=== PATIENT | female | born 1970 | race Caucasian/White ===

== ENCOUNTER → 2018-09-18 09:32 | Outpatient (CLI) | payer MEDICAID, SELFPAY ==
[2017-01-04 01:48] VITALS: BMI 37.0
[2018-09-18 10:52] LABS: Anion Gap 2 (5-15); BUN 11 mg/dL (7-18); BUN/Creat Ratio 10.7 RATIO (10-20); Calcium,Total 8.7 mg/dL (8.5-10.1); Chloride 108 mmol/L (98-107); Cholesterol 246 mg/dL (200); Creatinine, Serum 1.03 mg/dL (0.55-1.02); EST Glomerular Filtration Rate 61 mL/min (>60); Est Glom Filt Rate - Afr Amer 74 mL/min (>60); Glucose 96 mg/dL (74-106); High Density Lipoprotein 61 mg/dL; Potassium 4.2 mmol/L (3.5-5.1); Sodium Level 135 mmol/L (136-145); T4 Free Direct 0.98 ng/dL (0.76-1.46); Thyroid Stim Hormone (TSH) 1.16 uIU/mL (0.358-3.74); Triglycerides 105 mg/dL; Very Low Density Lipoprotein 21 mg/dL (5-40)
== END ==
PROVIDERS: Family Provider Family Medicine; PCP Family Medicine; Referring Provider Family Medicine; Visit Provider Family Medicine
DX: E78.5 Hyperlipidemia, unspecified (principal)
CPT/HCPCS: 36415; 80048; 80061; 84439; 84443

== ENCOUNTER 2020-01-16 08:54 | Emergency (ER) | payer MEDICAID, SELFPAY ==
[2020-01-16 08:55] VITALS: BP 136/78; PULSE 81; RESP 19; TEMP 36.6; O2SAT 96; BMI 38.4
--- NOTE | 2020-01-16 09:25 | ED.DCSUM_ITS ---
History of Present Illness Chief Complaint: Shortness of Breath Informant: Patient Onset: Yesterday Timing: Intermittent Quality: Wheezing Narrative: Patient is a 49-year-old female with history of multiple sclerosis and allergies presenting with wheezing. Patient states around 11 PM last night she started wheezing and feeling short of breath. She was able to go to bed around 2 AM but woke up and still was feeling short of breath. She said to come to the ER for further evaluation and treatment. She denies any associated symptoms such as chest pain, cough, fever, chills, nausea, vomiting or any symptoms. She has any upper respiratory symptoms. She notes that she was around her cats last night and was cleaning and sometimes that causes this to happen. She states she never been hospitalized for her breathing. She is not have any breathing treatments or anything at home. No other complaints at this time. She also notes that she has a mild headache. She states in the back of her neck rating up to her head. She not take anything for this prior to arrival. She denies associated vision changes. She denies any weakness or new paresthesias. She knows she is chronic paresthesias in her left hand secondary to her MS. She does not feel like this is a flare of her MS. Past Medical History - Allergies and Home Meds Allergies/Adverse Reactions: Allergies cat dander Allergy (Verified 01/16/20 08:57) Shortness of breath pollen extracts Allergy (Verified 01/16/20 08:57) Shortness of breath morphine Adverse Reaction (Verified 01/16/20 08:57) Nausea/Vom/Diarrhea Primary Care Physician: Cedric Lerma MD [Primary Care Provider] - Past Medical History: - - MS Surgical History: no surgical history Smoking Status: Never smoker Review of Systems General: Denies: Chills, Fever, Malaise, Sweats Eyes: Denies: Visual changes - bilaterally, Diplopia ENT: Denies: Rhinorrhea, Sore throat Cardiovascular: Denies: Chest pain, Palpitations Respiratory: Reports: Dyspnea, - - Wheezing. Denies: Cough, Dyspnea on exertion Gastrointestinal: Denies: Abdominal pain, Nausea, Vomiting, Diarrhea, Melena, Hematochezia Genitourinary: Denies: Dysuria, Hematuria Musculoskeletal: Denies: Back pain, Extremity Pain Skin: Denies: Rash, Wounds Neurological: Reports: Headache. Denies: Weakness, Numbness Physical Exam Vital Signs/Narrative: Vital Signs Temp Pulse Resp BP Pulse Ox 01/16/20 08:55 98 F 81 19 H 136/78 H 96 Inital Vital Signs reviewed: Yes General: Well nourished, Well developed, No Acute Distress Head: Normocephalic, Atraumatic Eyes: Perrl, EOMI ENT: Moist mucous membranes, No rhinorrhea, - - Minor erythema of the pharynx present Neck: Supple, Nontender, No JVD Cardiovascular: Regular rate, Regular rhythm, No murmurs Respiratory: No distress, Chest nontender, Wheezing - Wheezing in upper lung guerrero more pronounced than the lower. Negative for: Diminished, Decreased Air Movement, Retractions Abdomen: Soft, Nontender, Nondistended, Normal bowel sounds Back: Nontender, Normal Inspection Extremities: Nontender, No edema Skin: Normal color, No rash Neurological: Alert, Oriented x3, Cranial nerves II-XII grossly intact, Normal Strength Psychological: Normal affect, Normal Mood Diagnostic/Tx/Re-eval Chest X-Ray - ED: 2 View, Read by ED Physician, Read by Radiologist, No Acute Disease Clinical Impression(s) from Imaging Studies Chest X-Ray 01/16/20 09:30 IMPRESSION: Normal x-ray examination of the chest. Electronically Signed: Albert Bowles, at 9:50 EDT , Service support , Treatment - Dyspnea: Albuterol Repeat Evaluation: Resolved - Medical Decision Making Is evaluated for less than 24 hours of wheezing. The sudden onset. It seems to be asthma versus reactive airway. She does not appear infectious. Chest x-ray is obtained which does not show any acute process. Patient is given HFA inhaler in the ER with resolution of her symptoms. She is also given Motrin for her headache and prednisone. Patient will be discharged home on a course of prednisone and with albuterol inhaler. She is instructed to alternate Tylenol and ibuprofen as needed for headaches. She is agreeable with this plan. She has normal vital signs I do not think she requires further emergent evaluation at this time. She is given return precautions. ED Disposition - Plan for ED Patient: Disposition: Home or Assisted Living Diagnosis: Reactive airway disease with acute exacerbation Instructions: ED REACTIVE AIRWAY DISEASE Adult Prescriptions: Prednisone [Deltasone] 40 mg PO DAILY #8 tab Transmission Status: Pending to [facility] Referrals: Cedric Lerma MD [Primary Care Provider] - Additional Instructions: Use the inhaler with spacer every 4-6 hours (1 to 2 puffs) as needed for shortness of breath or wheezing. Follow-up with your primary care doctor. Might be beneficial to start taking daily allergy medicine such as Zyrtec until you are feeling better. At this time you do not appear to have any infectious cause such as pneumonia or COVID-19
--- NOTE | 2020-01-16 09:30 | RAD_ITS ---
STUDY: X-RAY CHEST REASON FOR EXAM: Female, 49 years old. Sob, wheezing TECHNIQUE: PA and lateral views of the chest. COMPARISON: Comparison is made with prior study dated 03/10/2012. FINDINGS: The lungs are clear and expanded. There is no demonstrated pleural abnormality. Normal size heart. Normal mediastinum and radhika. Normal visualized pulmonary arteries. Normal visualized aortic arch and descending thoracic aorta. Normal visualized thoracic spine. Normal visualized ribs, clavicles, and shoulders. There is no demonstrated abnormality of the visualized soft tissue structures of the upper abdomen. RAD/Chest PA and Lateral IMPRESSION: Normal x-ray examination of the chest. Electronically Signed: Albert Bowles, at 9:50 EDT , Service support ,
[2020-01-16] MEDS: predniSONE 20 MG Tablet 60 MG PO (10:02)
[2020-01-16] MEDS: Ibuprofen 600 MG Tablet PO (10:03)
[2020-01-16 10:15] VITALS: BP 132/97; PULSE 82; RESP 20; TEMP 36.6; O2SAT 97
[2020-01-16] MEDS: INHALER, ASSIST DEVICES 1 EACH SPACER INHALATION (11:16)
== END 2020-01-16 11:17 | disposition home or self-care (01) ==
PROVIDERS: Emergency Provider Emergency Medicine; PCP Family Medicine
DX: J45.901 Unspecified asthma with (acute) exacerbation (principal); G35 Multiple sclerosis
CPT/HCPCS: 71046; 99281

== ENCOUNTER → 2020-03-30 14:26 | Outpatient (CLI) | payer MEDICAID, SELFPAY ==
[2020-03-29 11:33] VITALS: BMI 37.8
--- NOTE | 2020-03-30 14:29 | US_ITS ---
STUDY: ULTRASOUND BREAST - LEFT REASON FOR EXAM: Female, 49 years old. Abnormal screening mammogram. TECHNIQUE: Axial and longitudinal images of the LEFT breast were performed with a high resolution ultrasound transducer. # OF IMAGES: 177 COMPARISON: Comparison is made with prior mammogram dated 03/30/2020. FINDINGS: LEFT Breast: Multiple cysts are seen throughout the right breast. This corresponds to the mammographic findings. The largest cyst measures 2.3 cm x 2.2 cm x 1.1 cm. IMPRESSION: Multiple cysts. ASSESSMENT CATEGORY: BIRADS Category 2: Benign. A letter regarding these results will be sent to the patient by the facility within 30 days. Electronically Signed: Albert Jelena, at 8:29 EST , Service support , STUDY: ULTRASOUND BREAST - RIGHT REASON FOR EXAM: Female, 49 years old. Abnormal screening mammogram. TECHNIQUE: Axial and longitudinal images of the RIGHT breast were performed with a high resolution ultrasound transducer. # OF IMAGES: 177 COMPARISON: Comparison is made with prior mammogram done earlier today. FINDINGS: RIGHT Breast: Multiple cysts are seen. The largest measures 2.2 cm x 1.7 cm x 1.4 cm. This corresponds to the mammographic findings. US/Breast Limited Unilateral IMPRESSION: Multiple cysts. ASSESSMENT CATEGORY: BIRADS Category 2: Benign. A letter regarding these results will be sent to the patient by the facility within 30 days. Electronically Signed: Albert Bowles, at 8:31 EST , Service support ,
--- NOTE | 2020-03-30 14:29 | BI_ITS ---
MAMMOGRAPHY - BILATERAL DIAGNOSTIC REASON FOR EXAM: Female, 49 years old. Bilateral breast lumps. PERTINENT HISTORY: Aunt with breast cancer. TECHNIQUE: Digital bilateral breast irena (3D mammographic acquisition) in the CC and MLO projections. 2-D mediolateral oblique (MLO) and craniocaudad (CC) views of both breasts were obtained. CAD: Full Field Digital Mammography with Computer Added Detection was performed. COMPARISON: Comparison is made with prior examination of 11/27/2010. FINDINGS: Breast Composition: The breasts are heterogeneously dense, which may obscure small masses. Several bilateral well-defined nodular densities in the upper central portion of both breasts. These most likely represent cysts. These have progressed in size and number as compared to prior study. Correlation with ultrasound is recommended. No other significant abnormalities are identified. BI/DIAG MAMM W/CAD, BILAT IMPRESSION: Bilateral breast nodules as described. Correlation with ultrasound is recommended. ASSESSMENT CATEGORY: BIRADS Category 0: Incomplete. Need additional imaging evaluation. A letter regarding these results will be sent to the patient by the facility within 30 days. Approximately 10% of breast cancers are not detected by mammography. A normal mammogram should not delay biopsy of a clinically suspicious abnormality. Electronically Signed: Albert Bowles, at 15:29 EST , Service support ,
== END ==
PROVIDERS: PCP Family Medicine; Visit Provider Nurse Practitioner Women's Health
DX: N63.20 Unspecified lump in the left breast, unspecified quadrant (principal); Z80.3 Family history of malignant neoplasm of breast
CPT/HCPCS: 76642; 77062; 77066; G0279

== ENCOUNTER → 2020-06-25 15:12 | Outpatient (CLI) | payer MEDICAID, SELFPAY ==
[2020-04-05 13:58] VITALS: BMI 35.5
== END ==
PROVIDERS: PCP Family Medicine; Referring Provider Family Medicine; Visit Provider Family Medicine
DX: Z20.828 Contact with and (suspected) exposure to other viral communicable diseases (principal)
CPT/HCPCS: 87635; U0002

== ENCOUNTER → 2020-10-13 11:41 | Outpatient (CLI) | payer MEDICAID, SELFPAY ==
[2020-10-02 15:15] VITALS: BMI 38.4
[2020-10-13 12:48] LABS: Absolute Neutrophil Count 4.5 X10^3/uL (2.0-7.7); Basophil# 0.07 X10^3/uL; Basophil% 0.8 % (0-1); Eosinophil# 0.73 X10^3/uL; Eosinophils% 8.8 % (0-5); Hemoglobin 14.3 g/dL (12.0-15.0); Lymphocyte % 27.6 % (19-41); Mean Corp Hgb Conc 31.1 g/dL (32-36); Mean Platelet Vol. 11.4 fl (6.2-12.0); Monocyte# 0.64 X10^3/uL; Monocyte% 7.7 % (0-10); NRBC Flagged by Analyzer 0 % (0-5); Neutrophil # 4.53 X10^3/uL (2.7-7.7); Neutrophil % 54.4 % (47-70); Platelet Count 286 K/mm3 (150-450); RBC Distribution Width CV 13.6 % (11.6-14.6); Red Blood Count 5.29 M/mm3 (4.2-5.4); White Blood Count 8.3 K/mm3 (4.4-11.0)
[2020-10-13 13:10] LABS: ALB/GLOB Ratio 0.9 RATIO (0.9-2.4); AST(SGOT) 17 U/L (15-37); Alanine Aminotransfer ALT/SGPT 32 U/L (13-56); Albumin, Serum 3.5 g/dL (3.2-5.0); Alkaline Phosphatase 69 U/L (45-117); Anion Gap 3 (5-15); BUN 16 mg/dL (7-18); BUN/Creat Ratio 15.1 RATIO (10-20); Chloride 106 mmol/L (98-107); Cholesterol 231 mg/dL (200); Creatinine, Serum 1.06 mg/dL (0.55-1.02); EST Glomerular Filtration Rate 58 mL/min (>60); Est Glom Filt Rate - Afr Amer 71 mL/min (>60); Globulin 4.1 g/dL (2.2-4.2); Glucose 98 mg/dL (74-106); High Density Lipoprotein 71 mg/dL; Potassium 4.7 mmol/L (3.5-5.1); Protein, Total 7.6 g/dL (6.4-8.2); Sodium Level 140 mmol/L (136-145); T4 Free Direct 0.88 ng/dL (0.76-1.46); Triglycerides 111 mg/dL; Very Low Density Lipoprotein 22 mg/dL (5-40)
== END ==
PROVIDERS: PCP Family Medicine; Referring Provider Family Medicine; Visit Provider Family Medicine
DX: G35 Multiple sclerosis (principal); E78.5 Hyperlipidemia, unspecified; F32.9 Major depressive disorder, single episode, unspecified
CPT/HCPCS: 36415; 80053; 80061; 82306; 84439; 84443; 85025

== ENCOUNTER → 2021-10-25 | Outpatient (CLI) | payer MEDICAID, SELFPAY ==
[2021-10-25 12:45] LABS: Absolute Lymphocyte Count 2.63 X10^3/uL (0.83-4.51); Absolute Neutrophil Count 4.4 X10^3/uL (2.0-7.7); Basophil# 0.06 X10^3/uL; Basophil% 0.7 % (0-1); Eosinophil# 0.76 X10^3/uL; Eosinophils% 8.7 % (0-5); Hematocrit 44.7 % (37-47); Hemoglobin 13.8 g/dL (12.0-15.0); Lymphocyte # 2.63 X10^3/ul (0.83-4.51); Lymphocyte % 30.2 % (19-41); Mean Corp Hgb Conc 30.9 g/dL (32-36); Mean Corpuscular Volume 87.3 fL (81-99); Mean Platelet Vol. 11.9 fl (6.2-12.0); Monocyte# 0.81 X10^3/uL; Monocyte% 9.3 % (0-10); NRBC Flagged by Analyzer 0 % (0-5); Neutrophil # 4.42 X10^3/uL (2.7-7.7); Neutrophil % 50.8 % (47-70); Platelet Count 285 K/mm3 (150-450); RBC Distribution Width SD 44.6 fl (35.1-43.9); Red Blood Count 5.12 M/mm3 (4.2-5.4); White Blood Count 8.7 K/mm3 (4.4-11.0)
[2021-10-25 12:56] LABS: ALB/GLOB Ratio 0.9 RATIO (0.9-2.4); AST(SGOT) 20 U/L (15-37); Alanine Aminotransfer ALT/SGPT 28 U/L (13-56); Albumin, Serum 3.4 g/dL (3.2-5.0); Alkaline Phosphatase 61 U/L (45-117); Anion Gap 4 (5-15); BUN 15 mg/dL (7-18); BUN/Creat Ratio 14.2 RATIO (10-20); Calcium,Total 9.1 mg/dL (8.5-10.1); Chloride 108 mmol/L (98-107); Cholesterol 201 mg/dL (200); Creatinine, Serum 1.06 mg/dL (0.55-1.02); EST Glomerular Filtration Rate 58 mL/min (>60); Est Glom Filt Rate - Afr Amer 70 mL/min (>60); Globulin 3.6 g/dL (2.2-4.2); Glucose 108 mg/dL (74-106); High Density Lipoprotein 60 mg/dL; Potassium 4.5 mmol/L (3.5-5.1); Sodium Level 141 mmol/L (136-145); Triglycerides 164 mg/dL
[2021-10-25 12:57] LABS: Very Low Density Lipoprotein 33 mg/dL (5-40)
== END | disposition home or self-care (01) ==
LOC: BIMLAB 08:31
PROVIDERS: PCP Internal Medicine; Referring Provider Internal Medicine; Visit Provider Internal Medicine
DX: E78.5 Hyperlipidemia, unspecified (principal); I10 Essential (primary) hypertension
CPT/HCPCS: 36415; 80053; 80061; 85025

== ENCOUNTER → 2021-11-20 | Outpatient (CLI) | payer MEDICAID, SELFPAY ==
--- NOTE | 2021-11-20 12:30 | EKG12_ITS ---
Test Reason : HYPERTENSION Blood Pressure : / mmHG Vent. Rate : 072 BPM Atrial Rate : 072 BPM P-R Int : 162 ms QRS Dur : 076 ms QT Int : 396 ms P-R-T Axes : 084 081 070 degrees QTc Int : 433 ms Normal sinus rhythm with sinus arrhythmia Normal ECG Confirmed by JOSE JORDAN, RUSS ([id number]), news editor EMILY GALAVIZ ([id number]) on 11/21/2021 8:14:46 AM Referred By: Paulino Peters Confirmed By:RUSS GARCIA MD
== END | disposition home or self-care (01) ==
LOC: PSN 12:24
PROVIDERS: PCP Internal Medicine; Referring Provider Internal Medicine; Visit Provider Internal Medicine
DX: I49.8 Other specified cardiac arrhythmias (principal); I10 Essential (primary) hypertension; E78.5 Hyperlipidemia, unspecified
CPT/HCPCS: 93005

== ENCOUNTER → 2021-12-02 | Outpatient (CLI) | payer MEDICAID, SELFPAY ==
[2021-12-02 15:39] LABS: Anion Gap 6 (5-15); BUN 12 mg/dL (7-18); Calcium,Total 9.7 mg/dL (8.5-10.1); Chloride 105 mmol/L (98-107); Creatinine, Serum 0.92 mg/dL (0.55-1.02); EST Glomerular Filtration Rate 68 mL/min (>60); Est Glom Filt Rate - Afr Amer 82 mL/min (>60); Glucose 94 mg/dL (74-106); Potassium 4.1 mmol/L (3.5-5.1); Sodium Level 140 mmol/L (136-145)
== END | disposition home or self-care (01) ==
LOC: BIMLAB 14:11
PROVIDERS: PCP Internal Medicine; Visit Provider Internal Medicine
DX: I10 Essential (primary) hypertension (principal)
CPT/HCPCS: 36415; 80048

== ENCOUNTER → 2021-12-04 | Outpatient (CLI) | payer MEDICAID, SELFPAY ==
--- NOTE | 2021-12-04 14:03 | BI_ITS ---
MAMMOGRAPHY - BILATERAL SCREENING REASON FOR EXAM: Female, 51 years old. Routine annual screening examination. PERTINENT HISTORY: Aunt with breast cancer. TECHNIQUE: Digital bilateral breast neetu (3D mammographic acquisition) in the CC and MLO projections. 2-D mediolateral oblique (MLO) and craniocaudad (CC) views of both breasts were obtained. CAD: Full Field Digital Mammography with Computer Added Detection was performed. COMPARISON: Comparison is made with prior study dated 03/30/2020. FINDINGS: Breast Composition: The breasts are heterogeneously dense, which may obscure small masses. 1 segment, several bilateral well-defined nodular densities are seen in the upper outer quadrant of both breasts more prominent on the left side. The previously seen nodules in the upper-outer quadrant of the left breast have decreased in size. There is also been mild decrease in size of the previously seen right breast nodules. These were demonstrated to be multiple cysts on prior ultrasound. No other significant abnormalities are identified. BI/SCRN MAMM (CAD)W/NEETU BILAT IMPRESSION: Interval decrease in size of the bilateral breast nodules as described in keeping with the decrease in size of breast cysts. Yearly follow-up mammogram recommended. (A) . ASSESSMENT CATEGORY: BIRADS Category 2: Benign. A letter regarding these results will be sent to the patient by the facility within 30 days. Approximately 10% of breast cancers are not detected by mammography. A normal mammogram should not delay biopsy of a clinically suspicious abnormality. [id number] Electronically Signed: Albert Bowles MD at 15:10 EDT ,
== END | disposition home or self-care (01) ==
LOC: OPBI 14:02
PROVIDERS: PCP Internal Medicine; Referring Provider Nurse Practitioner Women's Health; Visit Provider Nurse Practitioner Women's Health
DX: Z12.31 Encounter for screening mammogram for malignant neoplasm of breast (principal); Z80.3 Family history of malignant neoplasm of breast
CPT/HCPCS: 77063; 77067

== ENCOUNTER → 2021-12-18 | Outpatient (CLI) | payer MEDICAID, SELFPAY ==
--- NOTE | 2021-12-18 15:48 | MRI_ITS ---
INDICATION: MS EXAMINATION: MRI - MR Brain WO/W Contrast TECHNIQUE: MRI examination of the brain obtained with standard protocol including multiplanar multiecho pre and postcontrast imaging. IV Contrast Dosage and Agent: 20 mL Clariscan IV COMPARISON: 02/01/2016 FINDINGS: HEMISPHERES, CEREBELLUM AND BRAINSTEM: 1. The cerebral parenchyma, ventricular system, subarachnoid spaces have normal configuration and density. There is a normal gyral pattern. There is normal perez/white differentiation. No midline shift.. 2. Again noted is a subtle area of signal hyperintensity on FLAIR imaging within the dorsal cervical cord and cervical medullary junction, and extending into the dorsal lateral aspect of the medulla, particularly at the level of the restiform body. 3. Similar area of subtle signal hyperintensity along the lateral aspect of the rostral madonna at the level of the LEFT lateral lemniscus, however this is unchanged. 4. Remaining hemispheric white matter has normal appearance. 5. No intraparenchymal mass, hemorrhage, or acute territorial infarct. No areas of abnormal fluid restriction or contrast enhancement 6. The cerebellum, brainstem, basilar and suprasellar cisterns have unchanged configuration. No Chiari malformation. PITUITARY: Infundibulum and pituitary have normal configuration. Midline structures appear normal. CSF SPACES: Appropriate for age. No hydrocephalus. Basal cisterns are patent. VESSELS: 1. There are normal flow voids noted in the great vessels at the skull base ORBITS AND PARANASAL SINUSES: 1. Both globes, extraocular muscles, optic nerves and retrobulbar fat appear unremarkable. 2. Paranasal sinuses are clear. BONY ELEMENTS: Bony elements of the cranial vault, facial skeleton and skull base have normal appearance. SCALP AND SOFT TISSUES: Normal appearance of the soft tissues of the scalp and the visualized face OTHER: None MRI/Brain W/WO Contrast IMPRESSION: 1. Stable exam. 2. Subtle areas of white matter signal hyperintensity particularly at the cervical medullary junction, as well as along the LEFT lateral aspect of the rostral madonna. No detrimental interval change. 3. Remaining hemispheric white matter and deep nuclear white matter has normal appearance. 4. No evidence of active or acute demyelination. 5. No mass, hemorrhage, or acute territorial infarct. No areas of abnormal contrast-enhancement. Electronically Signed: Leonel Murry MD at 18:19 EDT ,
--- NOTE | 2021-12-18 15:48 | MRI_ITS ---
STUDY: MRI CERVICAL SPINE REASON FOR EXAM: Female, 51 years old. MS TECHNIQUE: Standardized fat and water weighted pulse sequences were obtained in the sagittal and axial following administration of IV 20ml Clariscan. COMPARISON: None FINDINGS: Vertebral bodies and alignment: 1. Vertebral body height and alignment are maintained. No evidence of marrow edema, fracture or subluxation. 2. Prevertebral soft tissue planes have normal appearance. 3. Normal appearance the odontoid process and alignment of the craniocervical junction. 4. Normal appearance the posterior muscular fascial planes of the cervical spine, and the posterior ligamentous support structure the cervical spine is intact. Intervertebral disc levels: C2-3: Normal endplates. Normal disc height, signal and morphology. Normal central canal and intervertebral neural foramina. C3-4: No evidence disc herniation canal stenosis however there is facet and uncovertebral joint hypertrophic change on the LEFT contributing to moderate to severe LEFT foraminal narrowing. C4-5: Mild disc desiccation without disc herniation or canal stenosis however there is a LEFT foraminal narrowing contributed about vertebral joint and facet changes with potential nerve root impingement. C5-6: Mild disc this case, mild disc protrusion with mild asymmetry greater on the LEFT than RIGHT. There is deformity of the lateral recesses. There is narrowing of the LEFT neural foramen due to uncovertebral joint and facet hypertrophic changes with early nerve root impingement. Moderate RIGHT foraminal narrowing without nerve root compromise. C6-7: Disc desiccation without evidence disc herniation canal stenosis. There is mild to moderate LEFT foraminal narrowing due to facet and uncovertebral joint hypertrophic changes. RIGHT neural foramen is widely patent. C7-T1: Normal endplates. Normal disc height, signal and morphology. Normal central canal and intervertebral neural foramina. Spinal CORD: There is normal appearance the spinal cord. There is subtle area of signal abnormality along the posterior aspect of the cervical medullary junction without change from prior MRI examination head. No other areas of abnormal signal or lesions within the spinal cord. No evidence cord compression. MRI/Spine Cervical W/WO Contrast IMPRESSION: 1. Mild cervical spondylosis. Mild chronic appearing disc bulge and osteophyte complex noted without evidence canal stenosis. 2. Multilevel foraminal narrowing greater on LEFT than RIGHT with potential nerve root impingement due to facet and uncovertebral joint hypertrophic changes. 3. Subtle focal area of signal hyperintensity in the cervical medullary junction consistent with a stable plaque. No other evidence of cord ischemia, masses, compression or additional areas of demyelination.. Electronically Signed: Leonel Murry MD at 0:40 EDT ,
== END | disposition home or self-care (01) ==
LOC: MRI 15:35
PROVIDERS: PCP Internal Medicine
DX: G35 Multiple sclerosis (principal)
CPT/HCPCS: 70553; 72156; A9575

== ENCOUNTER → 2022-02-12 | Outpatient (CLI) | payer MEDICAID, SELFPAY ==
[2022-02-12 07:54] LABS: Absolute Lymphocyte Count 3.31 X10^3/uL (0.83-4.51); Absolute Neutrophil Count 5.5 X10^3/uL (2.0-7.7); Basophil# 0.08 X10^3/uL; Basophil% 0.8 % (0-1); Eosinophil# 0.61 X10^3/uL; Eosinophils% 5.9 % (0-5); Hematocrit 46.2 % (37-47); Lymphocyte # 3.31 X10^3/ul (0.83-4.51); Lymphocyte % 31.9 % (19-41); Mean Corp Hgb Conc 32.5 g/dL (32-36); Mean Corpuscular Hgb 27.9 pg (27.0-32.0); Mean Platelet Vol. 11.6 fl (6.2-12.0); Monocyte# 0.87 X10^3/uL; Monocyte% 8.4 % (0-10); NRBC Flagged by Analyzer 0 % (0-5); Neutrophil # 5.49 X10^3/uL (2.7-7.7); Neutrophil % 52.7 % (47-70); Platelet Count 297 K/mm3 (150-450); RBC Distribution Width CV 13.5 % (11.6-14.6); RBC Distribution Width SD 42.2 fl (35.1-43.9); Red Blood Count 5.37 M/mm3 (4.2-5.4); White Blood Count 10.4 K/mm3 (4.4-11.0)
[2022-02-12 09:00] LABS: Color, Urine Yellow (Yellow); Glucose, Dipstick Normal (Normal); Ketone-Dipstick Negative (Negative); Leukocyte Esterase-Dipstick 100 /ul (Negative); Nitrite-Dipstick Negative (Negative); Occult Blood-Urine Negative /ul (Negative); Protein-Dipstick 15 mg/dl (Negative); Urine Bilirubin Dipstick Negative (Negative); Urine Clarity Sl. Cloudy (Clear); Urine Urobilinogen Normal (Normal)
== END | disposition home or self-care (01) ==
LOC: LAB 07:32
PROVIDERS: PCP Internal Medicine
DX: N39.0 Urinary tract infection, site not specified (principal)
CPT/HCPCS: 36415; 81002; 85025; 87086; 87088

== ENCOUNTER → 2022-06-05 | Outpatient (CLI) | payer MEDICAID, SELFPAY ==
[2022-06-05 16:51] LABS: Absolute Lymphocyte Count 2.69 X10^3/uL (0.83-4.51); Absolute Neutrophil Count 6.2 X10^3/uL (2.0-7.7); Basophil# 0.06 X10^3/uL; Basophil% 0.6 % (0-1); Eosinophil# 0.63 X10^3/uL; Eosinophils% 6.1 % (0-5); Hematocrit 47.4 % (37-47); Hemoglobin 14.6 g/dL (12.0-15.0); Lymphocyte # 2.69 X10^3/ul (0.83-4.51); Lymphocyte % 26.1 % (19-41); Mean Corp Hgb Conc 30.8 g/dL (32-36); Mean Corpuscular Hgb 27.8 pg (27.0-32.0); Mean Corpuscular Volume 90.3 fL (81-99); Monocyte# 0.72 X10^3/uL; NRBC Flagged by Analyzer 0 % (0-5); Neutrophil # 6.17 X10^3/uL (2.7-7.7); Neutrophil % 59.8 % (47-70); Platelet Count 324 K/mm3 (150-450); RBC Distribution Width SD 42.8 fl (35.1-43.9); Red Blood Count 5.25 M/mm3 (4.2-5.4); White Blood Count 10.3 K/mm3 (4.4-11.0)
[2022-06-05 16:56] LABS: ALB/GLOB Ratio 0.9 RATIO (0.9-2.4); AST(SGOT) 13 U/L (15-37); Alanine Aminotransfer ALT/SGPT 25 U/L (13-56); Albumin, Serum 3.4 g/dL (3.2-5.0); Alkaline Phosphatase 69 U/L (45-117); Anion Gap 7 (5-15); BUN 13 mg/dL (7-18); BUN/Creat Ratio 11.3 RATIO (10-20); Calcium,Total 9.3 mg/dL (8.5-10.1); Chloride 104 mmol/L (98-107); Cholesterol 171 mg/dL (200); Creatinine, Serum 1.15 mg/dL (0.55-1.02); EST Glomerular Filtration Rate 53 mL/min (>60); Est Glom Filt Rate - Afr Amer 64 mL/min (>60); Globulin 3.9 g/dL (2.2-4.2); Glucose 141 mg/dL (74-106); High Density Lipoprotein 53 mg/dL; Potassium 3.8 mmol/L (3.5-5.1); Protein, Total 7.3 g/dL (6.4-8.2); Sodium Level 142 mmol/L (136-145); Triglycerides 179 mg/dL; Very Low Density Lipoprotein 36 mg/dL (5-40)
[2022-06-09 14:42] LABS: Hemoglobin A1c 5.7 % (3.8-5.6)
== END | disposition home or self-care (01) ==
LOC: BIMLAB 14:32
PROVIDERS: PCP Internal Medicine; Visit Provider Internal Medicine
DX: Z00.00 Encounter for general adult medical examination without abnormal findings (principal)
CPT/HCPCS: 36415; 80053; 80061; 83036; 85025

== ENCOUNTER 2022-06-27 22:11 | Emergency (ER) | payer MEDICAID, SELFPAY ==
[2022-06-27 22:11] VITALS: BP 146/75; PULSE 87; RESP 15; TEMP 37.1; O2SAT 92; BMI 37.1
--- NOTE | 2022-06-27 22:57 | EDS_ITS ---
HPI HPI - URI History of Present Illness Chief Complaint: Sore Throat Informant: patient Onset/Context/Timing Onset: Days (4) Context: Sudden Onset Timing: Continuous Quality: Burning Location: Throat Worsened by: Swallowing Relieved by: - (Nothing) Associated Symptoms Associated Symptoms: Positive for Headache, Nausea, Vomiting, Chest Pain (With coughing) and Nonproductive cough; Negative for Nasal Congestion, Sinus Pressure, Myalgias, Diarrhea, Shortness of Breath, Hemoptysis or Productive Cough Narrative Narrative: Patient presents with sore throat, fever, and right ear pain that has been getting worse over the past 4 days. Patient describes her pain as burning. Patient states it has been constant. Patient states she went to an urgent care yesterday and had a rapid strep test done there which was negative. Patient states her symptoms of gotten worse. Patient admits to some nausea and vomiting. Patient also admits to a headache. Patient states she does have some pain in her chest with coughing. Patient denies any sputum production. ROS ROS ED Constitutional Constitutional ED: Reports fever(s); Denies chills Eyes Eyes: Denies blurry vision or change in vision ENT ENT ED: Reports ear pain right and sore throat; Denies rhinorrhea Cardiovascular Cardiovascular: Reports chest pain; Denies palpitations Respiratory/Chest Respiratory/Chest: Reports cough; Denies dyspnea Gastrointestinal Gastrointestinal: Reports nausea and vomiting Genitourinary Genitourinary ED: Denies dysuria or hematuria Musculoskeletal Musculoskeletal: Denies back pain or neck pain Integumentary Denies abscess or rash Neurologic Neurologic: Reports headache(s); Denies weakness Allergic/Immunologic Allergic/Immunologic ED: Denies mouth swelling or urticaria [facility] Medical History (Updated 06/28/22 @ 00:[address] Ozzie Busby, ) Blood glucose elevated Depression Family history of early CAD Fatigue Generalized headaches Hyperlipidemia Hypertension Low back pain Multiple sclerosis Preventative health care Seasonal allergies Home Medications estradiol 0.1 mg/24 hr semiweekly transdermal patch 1 patch transdermal 2XW #8 ea 11/19/21 [Rx Last Taken Unknown] atorvastatin 20 mg tablet 20 mg PO QHS #90 tabs 12/02/21 [Rx Last Taken Unknown] valacyclovir 500 mg tablet 500 mg PO DAILY #90 tabs 12/02/21 [Rx Last Taken Unknown] solifenacin 10 mg tablet 10 mg PO DAILY 06/27/22 [History Last Taken Unknown] amoxicillin 500 mg tablet 500 mg PO TID #30 tabs 06/28/22 [Rx Last Taken Unknown] Allergy/AdvReac Type Severity Reaction Status Date / Time cat dander Allergy Shortness Verified 06/27/22 22:15 of breath pollen extracts Allergy Shortness Verified 06/27/22 22:15 of breath morphine AdvReac Nausea/Vom/ Verified 06/27/22 22:15 Diarrhea Family History Father Myocardial infarction, Onset Age: 35 Grandfather Cancer Heart disease COPD (chronic obstructive pulmonary disease) Grandmother Diabetes Heart disease Mother Lung cancer Aunt Breast cancer Surgical History History of bladder suspension procedure History of tonsillectomy S/P laparoscopic assisted vaginal hysterectomy (LAVH) Social History household members: children and other number of children: 3 current occupational status: employed current occupation: [employer] history of recent travel: No sexually active: No Smoking Status: Never smoker alcohol intake: current alcohol intake frequency: holidays/special occasions only substance use type: does not use what type of physical activity do you participate in: none seatbelt use: always do you feel safe at home: Yes additional social history: EXAM Physical Exam Const Vital Signs: 06/27/22 22:11 Temperature 98.8 F Temperature Source Temporal Pulse Rate 87 Respiratory Rate 15 Blood Pressure 146/75 H Blood Pressure Mean 98 Pulse Ox 92 Oxygen Delivery Method Room Air Positive well nourished, well developed and obese General Appearance ED: well developed and NAD Nutritional Appearance: obese HEENT Reports moist mucous membranes Throat: posterior oropharynx abnormal Positive for erythema; Negative for exudates Eyes PERRL and EOMs intact bilaterally Neck supple and no JVD General: lymphadenopathy anterior cervical tender Resp normal respiratory effort and clear to auscultation bilaterally Cardio regular rate, regular rhythm and no murmurs Extremity normal to inspection Neuro oriented x3, CN's II-XII intact bilaterally and no sensory deficits noted Sensorium / Orientation: alert Motor Exam: strength 5/5 throughout Psych mental status grossly normal MDM MDM MDM Narrative Medical decision making narrative: Differential diagnosis includes COVID infection, influenza infection, viral upper respiratory infection, strep pharyngitis, and pneumonia. COVID-19 rapid antigen will be obtained to assess for COVID infection. Influenza A and influenza B antigens will be obtained to assess for influenza infection. Rapid strep will be obtained to assess for strep pharyngitis. Chest x-ray will be obtained to assess for pneumonia. Lab Data Attestation: I reviewed the patient's lab results. Lab results narrative: COVID-19 rapid antigen was reviewed and was negative. Influenza A and influenza B antigens were reviewed and were negative. Rapid strep was reviewed and was negative. Radiography Diagnostic Testing: Clinical Impression(s) from Imaging Studies Chest X-Ray 06/27/22 23:05 IMPRESSION: Right middle lobe linear scarring versus atelectasis, similar to previous exam. Electronically Signed: Leonardo Edwards MD at 23:48 EDT , PA and lateral chest x-ray was obtained. There are 2 views. On my independent interpretation, lung guerrero showed some scarring versus atelectasis in the right middle lobe. There is normal cardiac silhouette. Bony thorax is normal. There is no acute process noted. Radiologist also interpreted the x-ray and agrees. Treatment and Re-Evaluation Narrative: Patient was advised of her findings. Patient was instructed to drink plenty of fluids. Patient was instructed to take Tylenol or ibuprofen as needed for any fevers. Patient states that even though she tested positive for strep pharyngitis at the urgent care, she was never given a prescription for an antibiotic to take. Because of this, patient was given a prescription for amoxicillin. Patient was instructed to follow-up with her primary care physician in 5 to 7 days. Patient understood and was agreeable with the plan. All questions were answered. Discharge Plan Triage Chief Complaint: Sore Throat ED Provider: Ozzie Busby Dx/Rx/DC Orders Clinical Impression: Pharyngitis, Multiple sclerosis Instructions: ED Pharyngitis, Strep (Confirmed) Prescriptions: New amoxicillin 500 mg tablet 500 mg PO TID Qty: 30 0RF No Action valacyclovir 500 mg tablet 500 mg PO DAILY Qty: 90 3RF atorvastatin 20 mg tablet 20 mg PO QHS Qty: 90 3RF estradiol 0.1 mg/24 hr patch semiweekly 1 patch transdermal 2XW Qty: 8 12RF Rx Instructions: apply 1 patch for 3 days alternating with 1 patch for 4 days each week for 3 wks per 4-wk cycle solifenacin 10 mg tablet 10 mg PO DAILY Primary Care Provider: Paulino Peters Referrals: Paulino Peters MD [Primary Care Provider] - 5-7 Days Disposition Disposition: Home, Self Care
--- NOTE | 2022-06-27 23:05 | RAD_ITS ---
INDICATION: Cough, sore throat EXAMINATION/TECHNIQUE: X-RAY - XR Chest 2 Views COMPARISON: Two-view chest x-ray from 01/16/2020 FINDINGS: LINES/DEVICES: None. LUNGS: Slightly hyperexpanded lungs again noted. Stable linear scarring versus atelectasis right middle lobe demonstrated on lateral view. No pulmonary edema. No sizable pleural effusion. No pneumothorax detected. MEDIASTINUM AND CARDIOVASCULAR STRUCTURES: Heart size within normal limits. Mediastinal contours unremarkable. BONES AND SOFT TISSUES: No acute findings. RAD/Chest PA and Lateral IMPRESSION: Right middle lobe linear scarring versus atelectasis, similar to previous exam. Electronically Signed: Leonardo Edwards MD at 23:48 EDT ,
[2022-06-28] MEDS: AMOXICILLIN 500 MG CAPSULE PO (00:56)
== END 2022-06-28 01:09 | disposition home or self-care (01) ==
PROVIDERS: Emergency Provider Emergency Medicine; PCP Internal Medicine; Visit Provider Emergency Medicine
DX: J02.9 Acute pharyngitis, unspecified (principal); G35 Multiple sclerosis; E78.5 Hyperlipidemia, unspecified; Z79.899 Other long term (current) drug therapy
CPT/HCPCS: 71046; 87428; 87880; 99282

== ENCOUNTER → 2023-02-04 | Outpatient (CLI) | payer MEDICAID, SELFPAY ==
--- NOTE | 2023-02-04 14:08 | BI_ITS ---
MAMMOGRAPHY - BILATERAL SCREENING REASON FOR EXAM: Female, 52 years old. Routine annual screening examination. PERTINENT HISTORY: Aunt with breast cancer. TECHNIQUE: Digital bilateral breast neetu (3D mammographic acquisition) in the CC and MLO projections. 2-D mediolateral oblique (MLO) and craniocaudad (CC) views of both breasts were obtained. CAD: Full Field Digital Mammography with Computer Added Detection was performed. COMPARISON: Comparison is made with prior examination dated December 04, 2021 and March 30, 2020. FINDINGS: Breast Composition: The breasts are heterogeneously dense, which may obscure small masses. Dominant 3.7 cm x 1.8 cm well-defined nodule in the upper lateral aspect of the right breast. This has increased in size as compared to prior study. A similar-appearing well-defined nodule is seen along its posterior and medial portion. Stable appearance of the left breast. No other significant abnormalities are identified. BI/SCRN MAMM (CAD)W/NEETU BILAT IMPRESSION: Increased size of the well-defined nodules in the right breast as described. Correlation with ultrasound is recommended. ASSESSMENT CATEGORY: BIRADS Category 0: Incomplete. Need additional imaging evaluation. A letter regarding these results will be sent to the patient by the facility within 30 days. Approximately 10% of breast cancers are not detected by mammography. A normal mammogram should not delay biopsy of a clinically suspicious abnormality. [id number] Electronically Signed: Albert Bowles MD at 15:33 EST ,
== END | disposition home or self-care (01) ==
PROVIDERS: PCP Internal Medicine; Visit Provider Nurse Practitioner Women's Health
DX: Z12.31 Encounter for screening mammogram for malignant neoplasm of breast (principal); Z80.3 Family history of malignant neoplasm of breast
CPT/HCPCS: 77063; 77067

== ENCOUNTER → 2023-02-13 | Outpatient (CLI) | payer MEDICAID, SELFPAY ==
--- NOTE | 2023-02-13 08:00 | US_ITS ---
STUDY: ULTRASOUND BREAST - RIGHT REASON FOR EXAM: Female, 52 years old. Abnormal mammogram TECHNIQUE: Axial and longitudinal images of the RIGHT breast were performed with a high resolution ultrasound transducer. # OF IMAGES: [id number] COMPARISON: Mammogram from 02/04/2023. FINDINGS: RIGHT Breast: Focused ultrasound evaluation of the right breast in the upper outer quadrant performed. Dense fibroglandular tissue noted. The nodules noted on the mammogram all correspond to anechoic cysts. 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 Largest measures 4.2 x 3.4 x 1.2 cm, at least 2 of the cysts have internal echoes and septations but none demonstrate suspicious characteristics. There is no suspicious shadowing solid lesion, architectural distortion or clustered shadowing calcifications. If the cysts are bothersome for concerning to the patient, ultrasound-guided aspiration could be performed. US/Breast Limited Unilateral IMPRESSION: No suspicious sonographic abnormalities, multiple scattered cysts in the upper outer quadrant correspond to the mammographic findings. No specific follow-up needed other than if these are bothersome to the patient, aspiration under sonographic guidance could be performed ASSESSMENT CATEGORY: BIRADS Category 2: Benign. A letter regarding these results will be sent to the patient by the facility within 30 days. Electronically Signed: Tereso Reina MD at 11:30 EST ,
== END | disposition home or self-care (01) ==
LOC: OPUS 08:05
PROVIDERS: PCP Internal Medicine; Referring Provider Nurse Practitioner Women's Health; Visit Provider Nurse Practitioner Women's Health
DX: R14.0 Abdominal distension (gaseous) (principal); N60.01 Solitary cyst of right breast
CPT/HCPCS: 76642

== ENCOUNTER → 2023-02-17 | Outpatient (CLI) | payer MEDICAID, SELFPAY ==
--- NOTE | 2023-02-17 07:58 | US_ITS ---
INDICATION: bloating EXAMINATION: Ultrasound US Pelvis Non OB Complete With Transvaginal Imaging TECHNIQUE: Transabdominal and transvaginal pelvic ultrasound was performed. Grayscale, spectral waveform, and color flow Doppler evaluation of the adnexa. COMPARISON: No relevant prior comparison study available FINDINGS: UTERUS: Prior hysterectomy. RIGHT OVARY: Not visualized. LEFT OVARY: 1.6 x 1.2 x 0.6 cm. Non-enlarged, normal echogenicity. There is normal arterial inflow and venous outflow present in the left ovary. FREE FLUID: None. US/Pelvic w/ Transvaginal IMPRESSION: 1. Status post hysterectomy. 2. Nonvisualization of the right ovary. 3. No pelvic mass is seen. Electronically Signed: Bravo Bonilla MD at 15:50 EST ,
== END | disposition home or self-care (01) ==
LOC: OPUS 07:56
PROVIDERS: PCP Internal Medicine; Referring Provider Nurse Practitioner Women's Health; Visit Provider Nurse Practitioner Women's Health
DX: R14.0 Abdominal distension (gaseous) (principal)
CPT/HCPCS: 76830; 76856

== ENCOUNTER → 2023-03-11 | Outpatient (CLI) | payer MEDICAID, SELFPAY ==
--- NOTE | 2023-03-11 15:34 | PFTCOMP ---
COMPLETE PULMONARY FUNCTION TEST INTERPRETATION Brief HPI: Patient is a 52-year-old female, currently under the care of Dr. Yanez, who presents to [facility] for complete pulmonary function tests secondary to diagnosis of dyspnea. Respiratory therapist reports good effort and reproducible results. Interpretation: Forced expiration spirometry shows a mild large airways obstructive ventilatory defect with an FEV1 of 75% predicted. There is a significant bronchodilator response in FVC and FEV1 by strict ATS criteria. Spirograms are of good quality and plateau slowly, indicating slowly emptying areas of the lungs. The respiratory flow volume loop shows decreased expiratory flow rates at all lung volumes consistent with airway obstruction. Lung volumes by body plethysmography show a normal total lung capacity at 5.36 L, 105% predicted. FRC and RV are elevated out of proportion. Lung volume measurements are consistent with hyperinflation and air-trapping. Diffusion capacity by carbon monoxide is normal at 119% predicted. The airway resistance is elevated. No previous pulmonary function tests were available for review. Impression: Partially reversible mild large airways obstructive ventilatory defect resulting in air trapping with hyperinflation, but preserved diffusion capacity
--- NOTE | 2023-03-11 18:15 | STRESSREP ---
Stress Test Report Exercise stress test. 52-year-old lady with a history of chest pain Stress protocol: Resting EKG demonstrates normal sinus rhythm with a rate of 62 bpm resting blood pressure is 124/82 mmHg. The patient exercised according to the regular Wei protocol for a total duration of 6 minutes and 30 seconds attaining a maximum heart rate of 157 bpm which was 93% of maximum predicted heart rate; the maximum workload was 8.4 metabolic equivalents. At rest there were no ST or T wave changes noted to suggest ischemia and at peak exercise upsloping ST changes only were noted which did not meet the criteria for ischemia. No clinical angina was noted the test was terminated due to the target heart rate being achieved/fatigue. The peak blood pressure was 168/90 mmHg. Rate-pressure product was 21,000 Conclusion: Stress test with no EKG criteria for ischemia at a moderate workload..
== END | disposition home or self-care (01) ==
LOC: CVS 12:11
PROVIDERS: PCP Family Medicine; Referring Provider Family Medicine; Visit Provider Family Medicine
DX: R06.02 Shortness of breath (principal)
CPT/HCPCS: 93017; 94060; 94726; 94729

== ENCOUNTER → 2023-03-19 | Outpatient (CLI) | payer MEDICAID, SELFPAY ==
--- OUTSIDE RECORDS SUMMARY | 2023-03-19 09:46 | XMS RPT_ITS | CCD ---
Author Name Unknown Address [address] [place] [address] [id number] [place] [address] Organization [facility] Care Team Providers Care Window Covering Sales Consultant Name Role Phone Susy Lerma MD Primary Care Provider GOVIND ARAIZA Referring Unavailable SUSY LERMA Primary Care Unavailable GOVIND ARAIZA Referring Unavailable SUSY LERMA Primary Care Unavailable Paulino Peters MD Primary Care Provider [facility] ~[phone], [facility] Admitting Unavailable [facility] ~[phone], [facility] Attending Unavailable OLEGHE, EFEWONGBE SIXTO Primary Care Unav ailable OLMEDO DO, THUAN Consulting Unavailable OLMEDO DO, THUAN Consulting Unavailable JITENDRA DISPATCHER SHIP PILOTVONNIE L Consulting Unava ilable VONNIE HAM CRNA Consulting Unava ilable OLEGHE, EFEWONGBE B Primary Care Unavailable OLEGHE, EFEWONGBE B Primary Care Unavailable OLEGHE, EFEWONGBE B Primary Care Unavailable Allergies Allergy Classification Reported Allergen(s) Allergy Type Date of Onset Reaction(s) Facility (7 sources) Cat; Translations: [CATS] Propensity to adverse reactions 6 Swelling [facility] (7 sources) Dust; Translations: [DUST] Propensity to adverse reactions 6 [facility] (7 sources) Morphine; Translations: [MORPHINE] Drug Allergy 2 Rash, Itching [facility] (7 sources) Seasonal allergy; Translations: [SEASONAL ALLERGIES] Allergy to substance 3 Cough [facility] Work Phone: (3 sources) Horse/Equine Containing Products; Translations: [HORSE/EQUINE CONTAINING PRODUCTS] Propensity to adverse reactions 6 [facility] (4 sources) Horse/Equine Containing Products Propensity to adverse reactions [facility] (1 source) Morphine Drug Allergy [facility] Repository Medications Current Medications Medication Drug Class(es) Dates Sig (Normalized) Sig (Original) amoxicillin 875 mg / clavulanate 125 mg oral tablet (1 source) Penicillin-class Antibacterial Start: 07-09-2021 End: 07-14-2021 take 1 tablet by mouth twice daily amoxicillin-clav ulanic acid (AUGMENTIN) 875-125 mg per tablet Take 1 tablet by mouth twice daily for 5 days. 10 tablet 0 07/09/2021 07/14/2021 Active Completed/Discontinued Medications Medication Drug Class(es) Dates Sig (Normalized) Sig (Original) [id number] 200 actuat albuterol 0.09 mg/actuat metered dose inhaler (4 sources) beta2-Adrenergic Agonist Start: 05-07-2022 take 2 puff(s) by inhalation every four hours as needed for wheezing albuterol HFA (PROVENTIL HFA, VENTOLIN HFA) 90 mcg/actuation inhaler Inhale 2 Puffs as instructed every 4 hours as needed for wheezing/shortnes s of breath. 6.7 g 0 05/07/2022 Active Problems Active Problems Problem Classification Problem Date Documented Da te Episodic/Chronic Disorders of lipid metabolism (5 sources) Hyperlipidemia; Translations: [Hyperlipidemia, unspecified] Onset: 09-07-2007 10-07-2007 Chronic Genitourinary symptoms and ill-defined conditions (2 sources) Mixed incontinence; Translations: [MIXED INCONTINENCE] Onset: 09-29-2022 Chronic Genitourinary symptoms and ill-defined conditions (2 sources) Retention of urine, unspecified; Translations: [Increased frequency of urination] Onset: 09-29-2022 12-31-2022 Episodic Multiple sclerosis (1 source) Multiple sclerosis; Translations: [Multiple sclerosis (HCC)] Onset: 11-13-2021 Chronic Nutritional deficiencies (5 sources) Vitamin D deficiency; Translations: [Vitamin D deficiency, unspecified] Onset: 08-19-2012 08-19-2012 Chronic Other lower respiratory disease (1 source) Wheezing; Translations: [Wheezing] Episodic Other upper respiratory disease (1 source) Congestion of nasal sinus; Translations: [Nasal congestion] Episodic Other upper respiratory infections (1 source) Chronic sinusitis; Translations: [Chronic sinusitis, unspecified] Chronic Other upper respiratory infections (1 source) Sore throat symptom; Translations: [Acute pharyngitis, unspecified] Episodic Prolapse of female genital organs (5 sources) Midline cystocele; Translations: [Cystocele, midline] Onset: 03-19-2010 03-19-2010 Chronic Residual codes; unclassified (1 source) Generalized aches and pains; Translations: [Pain, unspecified] 12-31-2022 Episodic Past or Other Problems Problem Classification Problem Date Documented Da te Episodic/Chronic Cancer of cervix (5 sources) Carcinoma in situ of uterine cervix; Translations: [Carcinoma in situ of cervix, unspecified] Onset: 07-30-2007 09-08-2007 Episodic Headache; including migraine (5 sources) Headache; Translations: [Headache] Onset: 07-12-2013 07-12-2013 Episodic Other diseases of bladder and urethra (5 sources) Urethral diverticulum; Translations: [Urethral diverticulum] Onset: 11-13-2008 11-13-2008 Episodic Other screening for suspected conditions (not mental disorders or infectious disease) (5 sources) Mammography abnormal; Translations: [Other abnormal and inconclusive findings on diagnostic imaging of breast] Onset: 10-24-2009 10-24-2009 Episodic Residual codes; unclassified (5 sources) Disturbance in sleep behavior; Translations: [Sleep disorder, unspecified] Onset: 09-08-2007 03-18-2021 Episodic Spondylosis; intervertebral disc disorders; other back problems (5 sources) Neck pain; Translations: [Cervicalgia] Onset: 06-29-2013 06-29-2013 Episodic Results Test Name Value Interpretation Reference Range Facil ity Vital Signs Date Time Vital Sign Value Performing Clinician Chris mojica 12-31-2022 08:37-0400 Body temperature 97.9 [degF] Delaney Melara APRN.CNP Work Phone: [facility] 12-31-2022 08:37-0400 Body weight 106.23 kg Delaney Melara APRN.CNP Work Phone: [facility] 12-31-2022 08:37-0400 Diastolic blood pressure 78 mm[Hg] Delaney Melara APRN.CNP Work Phone: [facility] 12-31-2022 08:37-0400 Heart rate 67 /min Delaney Praisler-Wood [employer]MANAGER UNIT Work Phone: [facility] 12-31-2022 08:37-0400 Respiratory rate 18 /min Delaney Praisler-Wood [employer].MANAGER UNIT Work Phone: [facility] 12-31-2022 08:37-0400 SaO2% (BldA) [Mass fraction] 98 % Delaney Praisler-Wood [employer].MANAGER UNIT Work Phone: [facility] 12-31-2022 08:37-0400 Systolic blood pressure 122 mm[Hg] Delaney Praisler-Wood [employer].MANAGER UNIT Work Phone: [facility] 06-26-2022 07:19-0400 Body temperature 97.9 [degF] Shea Chowdary [employer]MANAGER UN[employer] Work Phone: [facility] 06-26-2022 07:19-0400 Body weight 105.69 kg Shea Chowdary [employer]MANAGER UNIT Work Phone: [facility] 06-26-2022 07:19-0400 Diastolic blood pressure 78 mm[Hg] Shea Chowdary [employer]MANAGER [employer] Work Phone: [facility] 06-26-2022 07:19-0400 Heart rate 90 /min Shea Chowdary [employer]MANAGER UNIT Work Phone: [facility] 06-26-2022 07:19-0400 Respiratory rate 18 /min Shea Cohwdary [employer].MANAGER UNIT Work Phone: [facility] 06-26-2022 07:19-0400 SaO2% (BldA) [Mass fraction] 96 % Shea Chowdary [employer]MANAGER UNIT Work Phone: [facility] 06-26-2022 07:19-0400 Systolic blood pressure 110 mm[Hg] Shea Chowdary [employer]MANAGER [employer] Work Phone: [facility] 05-07-2022 16:38-0500 Body temperature 98.49 [degF] Abhishek Chase PA Work Phone: [facility] 05-07-2022 16:38-0500 Body weight 107.23 kg Krislyn Aberegg PA Work Phone: [facility] 05-07-2022 16:38-0500 Diastolic blood pressure 76 mm[Hg] Krislyn Aberegg PA Work Phone: [facility] 05-07-2022 16:38-0500 Heart rate 70 /min Krislyn Aberegg PA Work Phone: [facility] 05-07-2022 16:38-0500 Respiratory rate 21 /min Krislyn Aberegg PA Work Phone: [facility] 05-07-2022 16:38-0500 SaO2% (BldA) [Mass fraction] 98 % Krislyn Aberegg PA Work Phone: [facility] 05-07-2022 16:38-0500 Systolic blood pressure 104 mm[Hg] Krislyn Aberegg PA Work Phone: [facility] 07-09-2021 08:14-0400 Body temperature 97.3 [degF] Shea Chowdary APRN.MANAGER UNIT Work Phone: [facility] 07-09-2021 08:14-0400 Body weight 103.33 kg Shae Chowdary APRN.MANAGER UNIT Work Phone: [facility] 07-09-2021 08:14-0400 Diastolic blood pressure 78 mm[Hg] Shea Chowdary APRN.MANAGER UNIT Work Phone: [facility] 07-09-2021 08:14-0400 Heart rate 73 /min Shea Chowdary APRN.MANAGER UNIT Work Phone: [facility] 07-09-2021 08:14-0400 Respiratory rate 18 /min Shea Chowdary APRN.MANAGER UNIT Work Phone: [facility] 07-09-2021 08:14-0400 SaO2% (BldA) [Mass fraction] 94 % Shea Chowdary APRN.MANAGER UNIT Work Phone: [facility] 07-09-2021 08:14-0400 Systolic blood pressure 112 mm[Hg] Shea Chowdary APRN.MANAGER UNIT Work Phone: [facility] Encounters Encounter Date Encounter Type Care Provider Facility Start: 01-01-2023 Telephone encounter Thuan Mckeon MD Work Phone: [facility] Procedures Date Procedure Procedure Detail Performing Clinician Start: 12-31-2022 Urnls dip stick/tabl et rgnt auto w/o microscopy Jolynn Mcallister [employer]MANAGER [employer] Work Phone: Start: 06-26-2022 STREP A MOLECULAR (POC) Shea Chowdary APRN.MANAGER UNIT Work Phone: Start: 09-09-2013 Adult depression scr eening assessment Shea Chowdary APRN.MANAGER UNIT Work Phone: Start: 10-05-2012 Lipid 1996 panel - S joanna or Plasma Delaney Melara APRN.MANAGER UNIT Work Phone: Start: 11-21-2010 Mammography Shea Chowdary APRN.MANAGER UNIT Work Phone: Plan of Treatment Date Care Activity Detail Author Start: 02-05-2025 DIABETES SCREEN DIABETES SCREEN [facility] Start: 02-05-2025 Diabetes Screening Diabetes Screening [facility] Start: 11-21-2022 Influenza vaccination [facility] Start: 03-23-2022 DEPRESSION ASSESSMENT DEPRESSION ASSESSMENT [facility] Start: 11-21-2021 Influenza vaccination [facility] Start: 08-13-2021 Urine microalbumin profile [facility] Start: 2020 SHINGRIX VACCINE (1 of 2) SHINGRIX VACCINE (1 of 2) [facility] Start: 10-05-2017 Lipid 1996 panel - Serum or Plasma Lipid Screening [facility] Start: 10-05-2017 LIPID SCREEN LIPID SCREEN [facility] Start: 07-20-2017 DIABETES SCREEN DIABETES SCREEN [facility] Start: 04-24-2016 PAP TESTING PAP TESTING [facility] Start: 06-08-2015 COLOGUARD (FIT-DNA) COLOGUARD (FIT-DNA) [facility] Start: 06-08-2015 Colonoscopy COLONOSCOPY [facility] Start: 06-08-2015 COLORECTAL CANCER SCREENING COLORECTAL CANCER SCREENING [facility] Start: 06-08-[address] COLONOGRAPHY [facility] Start: 06-08-2015 FECAL OCCULT BLOOD FECAL OCCULT BLOOD [facility] Start: 06-08-2015 SIGMOIDOSCOPY SIGMOIDOSCOPY [facility] Start: 09-09-2014 Adult depression screening assessment DEPRESSION SCREENING [facility] Start: 08-07-2013 HPV TESTING HPV TESTING [facility] Start: 11-22-2011 Mammography [facility] Start: 1988 HEPATITIS C SCREENING HEPATITIS C SCREENING [facility] Start: 1988 HIV SCREENING HIV SCREENING [facility] Start: 06-08-1975 COVID-19 VACCINE (1) COVID-19 VACCINE (1) [facility] Start: 1970 COVID-19 VACCINE (#1) COVID-19 VACCINE (#1) [facility] Start: 1970 HEPATITIS B (1 of 3 - 3-dose series) HEPATITIS B (1 of 3 - 3-dose series) [facility] Start: 1970 Hepatitis B Vaccine (1 of 3 - 3-dose series) Hepatitis B Vaccine (1 of 3 - 3-dose series) [facility] Bacteria identified in Urine by Culture URINE CULTURE Microbiology Routine Urinary frequency Ordered: 12/31/2022 [facility] Work Phone: Immunizations Immunization Date Immunization Notes Care Provider Lele lobo 03-13-2012 influenza virus vacc ine, unspecified formulation Shea Chowdary APRN.CNP Work Phone: [facility] 08-14-2011 tetanus toxoid, redu nicolasa diphtheria toxoid, and acellular pertussis vaccine, adsorbed Shea Chowdary APRN.CNP Work Phone: [facility] Payers Date Payer Category Payer Medicaid [id number] 2016 Medicaid [employer] [id number] 2016-Present [phone] [address] [place] [address] Medicaid [id number] 2016 Medicaid [id number] 1970 Unknown [id number] 1959 Medicaid [id number] Social History Date Type Detail Facility Start: 04-24-2011 Tobacco smoking status NHIS Never smoked tobacco [facility] Start: 07-09-2021 End: 12-31-2022 Alcohol intake Current drinker of alcohol (finding) [facility] Start: 04-24-2011 History SDOH Alcohol Comment Occasionally 1-2 per year [facility] Start: 1970 Sex Assigned At Not on file [facility] Start: 06-29-2021 End: 07-09-2021 Exposure to SARS-CoV-2 (event) Not sure [facility] Work Phone: Start: 04-24-2011 Tobacco use and exposure Smokeless tobacco non-user [facility] Start: 03-09-2020 End: 12-31-2022 History of Social function [facility] Start: 03-09-2020 End: 12-31-2022 Tobacco use panel [facility] National Score (1-100), lower number is lower risk Not on file [facility] Clinical Notes 05-07-2009 to 01-01-2023 Telephone Encounter - Ariadne Guerrero LPN - 01/01/2023 10:43 AM EDTTelephone Encounter - Ariadne Guerrero LPN - 01/01/2023 10:43 AM EDTPatient InstructionsPatient Instructions Note Date & Type Note Facility 01-01-2023 Miscellaneous Notes Patient notified and verbalized understanding of instructions given.Ariadne Guerrero LPN ----- Message from Thuan Casanova MD sent at 01/01/2023 9:18 AM EDT ----- Urine culture showed no infection. Follow-up with your PCP to recheck urine for blood. documented in this encounter [facility] 12-31-2022 Note HNO ID: [id number] Author: Delaney Melara APRN.MANAGER UNIT Service: ? Author Type: Nurse Practitioner Type: Progress Notes Filed: 12/31/2022 8:53 AM Note Text: Subjective HPI Janny Meza is a 52 year old female who presents with two days of symptoms consisting of low back pain, headaches, body aches, cough and urinary frequency. She has not had a fever at home. She denies any known sick contacts. She took ibuprofen at home. Review of Systems Constitutional: Negative for chills and fever. HENT: Positive for tinnitus. Negative for congestion, ear pain and sore throat. Respiratory: Positive for cough. Negative for shortness of breath. Cardiovascular: Negative for chest pain. Gastrointestinal: Negative for abdominal pain, diarrhea, nausea and vomiting. Genitourinary: Positive for frequency. Musculoskeletal: Positive for myalgias. Neurological: Positive for headaches. BP 122/78 Pulse 67 Temp 36.6 ?C (97.9 ?F) (Tympanic) Resp 18 Wt 106.2 kg (234 lb 3.2 oz) LMP 12/20/2005 SpO2 98% PAST MEDICAL HISTORY Diagnosis Date Abnormal glandular Papanicolaou smear of cervix Abn. 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 Convulsions in WITH FEVER Cystocele, midline Depressive disorder, not elsewhere classified 01/14/2006 Multiple sclerosis (HCC) 2012 Other and unspecified hyperlipidemia 03/23/1997 Premenstrual tension syndromes PAST SURGICAL HISTORY Procedure Laterality Date COLPOSCOPY CERVIX UPPER/ADJACENT VAGINA Colposcopy CONIZATION CERVIX W/WO DANDC RPR ELTRD EXC 2004 LEEP-Cervix Paps since OK INSERT INTRAUTERINE DEVICE 11/19/2005 Mirena mid urethral sling 03/20/09 NEPHROLITHOTOMY REMOVAL STAGE 1 1997 TONSILLECTOMY PRIMARY/SECONDARY VAGINAL HYSTERECTOMY UTERUS 250 GM/< 03/20/09 Hysterectomy, vaginal, anterior repair ALLERGIES Cats, Dust, Horse/Equine Containing Products, Morphine, and Seasonal Allergies MEDICATIONS albuterol HFA (PROVENTIL HFA, VENTOLIN HFA) 90 mcg/actuation inhaler Inhale 2 Puffs as instructed every 4 hours as needed for wheezing/shortness of breath. atorvastatin (LIPITOR) 10 mg tablet Take 1 tablet by mouth daily at bedtime. For cholesterol. Cholecalciferol, Vitamin D3, 1,000 unit cap Take 5 capsules by mouth once daily. [id number]-yxpmarwv e (BMX 1:1:1) 1:1:1 liqd Mix in equal amounts - 1 T every 2hrs as needed for mouth pain, Swish/swallow or expectorate. (8oz) FLUoxetine HCl (PROZAC) 40 mg capsule Take 40 mg by mouth once daily. (Patient not taking: Reported on 05/07/2022) valACYclovir (VALTREX) 500 mg tablet Take 1 tablet by mouth once daily as needed. FAMILY HISTORY Problem Relation Age of Onset Breast Cancer Other PATERNAL GREAT AUNT Heart Father SC @ AGE 34 other (ANGIOPLASTY [Other]) Paternal Grandfather Heart Paternal Grandmother OPEN HEART SURGERY Diabetes Maternal Grandmother Diabetes Paternal Grandmother Emphysema Maternal Grandfather Cancer Mother LUNG-smoker other (rheumatoid arthritis [Other]) Paternal Grandmother Social History Tobacco Use Smoking status: Never Smokeless tobacco: Never Substance Use Topics Alcohol use: Yes Comment: Occasionally 1-2 per year Drug use: No Objective Physical Exam Vitals and nursing note reviewed. Constitutional: General: She is not in acute distress. Appearance: Normal appearance. She is obese. She is not ill-appearing. Cardiovascular: Rate and Rhythm: Normal rate and regular rhythm. Heart sounds: Normal heart sounds. Pulmonary: Effort: Pulmonary effort is normal. No respiratory distress. Breath sounds: Normal breath sounds. No wheezing or rales. Abdominal: General: There is no distension. Palpations: Abdomen is soft. There is no mass. Tenderness: There is abdominal tenderness in the suprapubic area. There is no right CVA tenderness, left CVA tenderness or guarding. Skin: General: Skin is warm and dry. Neurological: Mental Status: She is alert. ASSESSMENT/PLAN: 1. Urinary frequency - ICD9: 788.41, ICD10: R35.0 (primary diagnosis) acute - UA positive for hematuria and proteinuria - Send urine for culture - Patient education for prevention given - No antibiotic at time of visit, will prescribe if indicated by culture results. - UA DIP, URINE (POC) - URINE CULTURE 2. Body aches - ICD9: 780.96, ICD10: R52 - offered COVID testing, patient declined. - Follow-up with your PCP in 3-5 days if symptoms have not improved or sooner if symptoms worsen - Discussed red flags and need for immediate medical evaluation if any occur. - Discussed supportive care treatment with fluids, rest and analgesia. - Discussed expected course of illness Delaney Melara APRN.CNP [facility] 12-31-2022 Instructions Delaney Melara APRN.CNP - 12/31/2022 8:53 AM EDT ASSESSMENT/PLAN: 1. Urinary frequency - ICD9: 788.41, ICD10: R35.0 (primary diagnosis) acute - UA positive for hematuria and proteinuria - Send urine for culture - Patient education for prevention given - No antibiotic at time of visit, will prescribe if indicated by culture results. - UA DIP, URINE (POC) - URINE CULTURE 2. Body aches - ICD9: 780.96, ICD10: R52 - offered COVID testing, patient declined. - Follow-up with your PCP in 3-5 days if symptoms have not improved or sooner if symptoms worsen - Discussed red flags and need for immediate medical evaluation if any occur. - Discussed supportive care treatment with fluids, rest and analgesia. - Discussed expected course of illness Delaney Melara APRN.CNP documented in this encounter [facility] 12-31-2022 History of Presen t illness Narrative Subjective HPI Janny Meza is a 52 year old female who presents with two days of symptoms consisting of low back pain, headaches, body aches, cough and urinary frequency. She has not had a fever at home. She denies any known sick contacts. She took ibuprofen at home. Review of Systems Constitutional: Negative for chills and fever. HENT: Positive for tinnitus. Negative for congestion, ear pain and sore throat. Respiratory: Positive for cough. Negative for shortness of breath. Cardiovascular: Negative for chest pain. Gastrointestinal: Negative for abdominal pain, diarrhea, nausea and vomiting. Genitourinary: Positive for frequency. Musculoskeletal: Positive for myalgias. Neurological: Positive for headaches. BP 122/78 Pulse 67 Temp 36.6 C (97.9 F) (Tympanic) Resp 18 Wt 106.2 kg (234 lb 3.2 oz) LMP 12/20/2005 SpO2 98% PAST MEDICAL HISTORY Diagnosis Date Abnormal glandular Papanicolaou smear of cervix Abn. 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 Convulsions in WITH FEVER Cystocele, midline Depressive disorder, not elsewhere classified 01/14/2006 Multiple sclerosis (HCC) 2012 Other and unspecified hyperlipidemia 03/23/1997 Premenstrual tension syndromes PAST SURGICAL HISTORY Procedure Laterality Date COLPOSCOPY CERVIX UPPER/ADJACENT VAGINA Colposcopy CONIZATION CERVIX W/WO D&C RPR ELTRD EXC 2003 LEEP-Cervix Paps since OK INSERT INTRAUTERINE DEVICE 11/19/2005 Mirena mid urethral sling 03/20/09 NEPHROLITHOTOMY REMOVAL STAGE 1 1997 TONSILLECTOMY PRIMARY/SECONDARY <AGE 12 VAGINAL HYSTERECTOMY UTERUS 250 GM/< 03/20/09 Hysterectomy, vaginal, anterior repair ALLERGIES Cats, Dust, Horse/Equine Containing Products, Morphine, and Seasonal Allergies MEDICATIONS albuterol HFA (PROVENTIL HFA, VENTOLIN HFA) 90 mcg/actuation inhaler Inhale 2 Puffs as instructed every 4 hours as needed for wheezing/shortness of breath. atorvastatin (LIPITOR) 10 mg tablet Take 1 tablet by mouth daily at bedtime. For cholesterol. Cholecalciferol, Vitamin D3, 1,000 unit cap Take 5 capsules by mouth once daily. [id number]-tsmzti-nuvwylsu e (BMX 1:1:1) 1:1:1 liqd Mix in equal amounts - 1 T every 2hrs as needed for mouth pain, Swish/swallow or expectorate. (8oz) FLUoxetine HCl (PROZAC) 40 mg capsule Take 40 mg by mouth once daily. (Patient not taking: Reported on 05/07/2022) valACYclovir (VALTREX) 500 mg tablet Take 1 tablet by mouth once daily as needed. FAMILY HISTORY Problem Relation Age of Onset Breast Cancer Other PATERNAL GREAT AUNT Heart Father SC @ AGE 34 other (ANGIOPLASTY [Other]) Paternal Grandfather Heart Paternal Grandmother OPEN HEART SURGERY Diabetes Maternal Grandmother Diabetes Paternal Grandmother Emphysema Maternal Grandfather Cancer Mother LUNG-smoker other (rheumatoid arthritis [Other]) Paternal Grandmother Social History Tobacco Use Smoking status: Never Smokeless tobacco: Never Substance Use Topics Alcohol use: Yes Comment: Occasionally 1-2 per year Drug use: No Objective Physical Exam Vitals and nursing note reviewed. Constitutional: General: She is not in acute distress. Appearance: Normal appearance. She is obese. She is not ill-appearing. Cardiovascular: Rate and Rhythm: Normal rate and regular rhythm. Heart sounds: Normal heart sounds. Pulmonary: Effort: Pulmonary effort is normal. No respiratory distress. Breath sounds: Normal breath sounds. No wheezing or rales. Abdominal: General: There is no distension. Palpations: Abdomen is soft. There is no mass. Tenderness: There is abdominal tenderness in the suprapubic area. There is no right CVA tenderness, left CVA tenderness or guarding. Skin: General: Skin is warm and dry. Neurological: Mental Status: She is alert. ASSESSMENT/PLAN: 1. Urinary frequency - ICD9: 788.41, ICD10: R35.0 (primary diagnosis) acute - UA positive for hematuria and proteinuria - Send urine for culture - Patient education for prevention given - No antibiotic at time of visit, will prescribe if indicated by culture results. - UA DIP, URINE (POC) - URINE CULTURE 2. Body aches - ICD9: 780.96, ICD10: R52 - offered COVID testing, patient declined. - Follow-up with your PCP in 3-5 days if symptoms have not improved or sooner if symptoms worsen - Discussed red flags and need for immediate medical evaluation if any occur. - Discussed supportive care treatment with fluids, rest and analgesia. - Discussed expected course of illness Delaney Melara APRN.MICHAEL documented in this encounter [facility] 06-26-2022 Note HNO ID: [id number] Author: Shea Chowdary APRN.MICHAEL Service: ? Author Type: Nurse Practitioner Type: Progress Notes Filed: 06/26/2022 7:50 AM Note Text: CC: Patient presents with: Sore Throat: ST and fever x 2 days HPI: Janny Meza is a 52 year old female who presents to the office with complaint of sore throat and fever for a few days. Symptoms are worsening Associated symptoms includes sore throat. Denies ear pain, nausea, vomiting , and diarrhea. Treatments tried include nothing so far. with no relief of symptoms. Sick contacts: unknown. History of asthma, frequent episodes of bronchitis, chronic bronchitis, bronchiectasis or COPD: No Smoker: No Seasonal/environmental allergies: No The ROS is otherwise negative. The patient's pmh, medications, allergies, and past visits are reviewed. PHYSICAL EXAM: BP 110/78 Pulse 90 Temp 36.6 ?C (97.9 ?F) (Tympanic) Resp 18 Wt 105.7 kg (233 lb) LMP 12/20/2005 SpO2 96% General appearance: alert, cooperative, pleasant, in no acute distress Head: Normocephalic Eyes: EOM's intact, conjunctiva pink and moist, no icterus, sclera white, non-injected Ears: Right ear: External ear/canal- Normal, TM - clear with good landmarks. Left ear: External ear/canal- Normal, TM - clear with good landmarks Oropharynx:moderate erythema, without exudates present Heart: Negative. RRR without obvious murmur, gallop, or rubs. No ectopy. Lungs: clear to auscultation, without rales or wheeze, good air exchange PAST MEDICAL HISTORY Diagnosis Date Abnormal glandular Papanicolaou smear of cervix Abn. 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 Convulsions in WITH FEVER Cystocele, midline Depressive disorder, not elsewhere classified 01/14/2006 Multiple sclerosis (HCC) 2012 Other and unspecified hyperlipidemia 03/23/1997 Premenstrual tension syndromes PAST SURGICAL HISTORY Procedure Laterality Date COLPOSCOPY CERVIX UPPER/ADJACENT VAGINA Colposcopy CONIZATION CERVIX W/WO DANDC RPR ELTRD EXC 2004 LEEP-Cervix Paps since OK INSERT INTRAUTERINE DEVICE 11/19/2005 Mirena mid urethral sling 03/20/09 NEPHROLITHOTOMY REMOVAL STAGE 1 1997 TONSILLECTOMY PRIMARY/SECONDARY VAGINAL HYSTERECTOMY UTERUS 250 GM/< 03/20/09 Hysterectomy, vaginal, anterior repair ALLERGIES Cats, Dust, Horse/Equine Containing Products, Morphine, and Seasonal Allergies MEDICATIONS albuterol HFA (PROVENTIL HFA, VENTOLIN HFA) 90 mcg/actuation inhaler Inhale 2 Puffs as instructed every 4 hours as needed for wheezing/shortness of breath. atorvastatin (LIPITOR) 10 mg tablet Take 1 tablet by mouth daily at bedtime. For cholesterol. valACYclovir (VALTREX) 500 mg tablet Take 1 tablet by mouth once daily as needed. Cholecalciferol, Vitamin D3, 1,000 unit cap Take 5 capsules by mouth once daily. FLUoxetine HCl (PROZAC) 40 mg capsule Take 40 mg by mouth once daily. (Patient not taking: Reported on 05/07/2022) FAMILY HISTORY Problem Relation Age of Onset Breast Cancer Other PATERNAL GREAT AUNT Heart Father SC @ AGE 34 other (ANGIOPLASTY [Other]) Paternal Grandfather Heart Paternal Grandmother OPEN HEART SURGERY Diabetes Maternal Grandmother Diabetes Paternal Grandmother Emphysema Maternal Grandfather Cancer Mother LUNG-smoker other (rheumatoid arthritis [Other]) Paternal Grandmother Social History Tobacco Use Smoking status: Never Smokeless tobacco: Never Substance Use Topics Alcohol use: Yes Comment: Occasionally 1-2 per year Drug use: No ASSESSMENT/PLAN: 1. Sore throat - ICD9: 462, ICD10: J02.9 - STREP A MOLECULAR (POC) - neg - [id number] NE ([facility]) Prescription instructions reviewed with patient as applicable. Potential red flag symptoms discussed with the patient. Reviewed appropriate action plan to take if red flag symptoms occur. Patient agreeable to treatment plan. Patient will follow up as needed. Shea Chowdary APRN.[place] 06-26-2022 History of Presen t illness Narrative CC: Patient presents with: Sore Throat: ST and fever x 2 days HPI: Janny Meza is a 52 year old female who presents to the office with complaint of sore throat and fever for a few days. Symptoms are worsening Associated symptoms includes sore throat. Denies ear pain, nausea, vomiting , and diarrhea. Treatments tried include nothing so far. with no relief of symptoms. Sick contacts: unknown. History of asthma, frequent episodes of bronchitis, chronic bronchitis, bronchiectasis or COPD: No Smoker: No Seasonal/environmental allergies: No The ROS is otherwise negative. The patient's pmh, medications, allergies, and past visits are reviewed. PHYSICAL EXAM: BP 110/78 Pulse 90 Temp 36.6 C (97.9 F) (Tympanic) Resp 18 Wt 105.7 kg (233 lb) LMP 12/20/2005 SpO2 96% General appearance: alert, cooperative, pleasant, in no acute distress Head: Normocephalic Eyes: EOM's intact, conjunctiva pink and moist, no icterus, sclera white, non-injected Ears: Right ear: External ear/canal- Normal, TM - clear with good landmarks. Left ear: External ear/canal- Normal, TM - clear with good landmarks Oropharynx:moderate erythema, without exudates present Heart: Negative. RRR without obvious murmur, gallop, or rubs. No ectopy. Lungs: clear to auscultation, without rales or wheeze, good air exchange PAST MEDICAL HISTORY Diagnosis Date Abnormal glandular Papanicolaou smear of cervix Abn. 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 Convulsions in WITH FEVER Cystocele, midline Depressive disorder, not elsewhere classified 01/14/2006 Multiple sclerosis (HCC) 2012 Other and unspecified hyperlipidemia 03/23/1997 Premenstrual tension syndromes PAST SURGICAL HISTORY Procedure Laterality Date COLPOSCOPY CERVIX UPPER/ADJACENT VAGINA Colposcopy CONIZATION CERVIX W/WO D&C RPR ELTRD EXC 2004 LEEP-Cervix Paps since OK INSERT INTRAUTERINE DEVICE 11/19/2005 Mirena mid urethral sling 03/20/09 NEPHROLITHOTOMY REMOVAL STAGE 1 1997 TONSILLECTOMY PRIMARY/SECONDARY <AGE 12 VAGINAL HYSTERECTOMY UTERUS 250 GM/< 03/20/09 Hysterectomy, vaginal, anterior repair ALLERGIES Cats, Dust, Horse/Equine Containing Products, Morphine, and Seasonal Allergies MEDICATIONS albuterol HFA (PROVENTIL HFA, VENTOLIN HFA) 90 mcg/actuation inhaler Inhale 2 Puffs as instructed every 4 hours as needed for wheezing/shortness of breath. atorvastatin (LIPITOR) 10 mg tablet Take 1 tablet by mouth daily at bedtime. For cholesterol. valACYclovir (VALTREX) 500 mg tablet Take 1 tablet by mouth once daily as needed. Cholecalciferol, Vitamin D3, 1,000 unit cap Take 5 capsules by mouth once daily. FLUoxetine HCl (PROZAC) 40 mg capsule Take 40 mg by mouth once daily. (Patient not taking: Reported on 05/07/2022) FAMILY HISTORY Problem Relation Age of Onset Breast Cancer Other PATERNAL GREAT AUNT Heart Father [place] @ AGE 34 other (ANGIOPLASTY [Other]) Paternal Grandfather Heart Paternal Grandmother OPEN HEART SURGERY Diabetes Maternal Grandmother Diabetes Paternal Grandmother Emphysema Maternal Grandfather Cancer Mother LUNG-smoker other (rheumatoid arthritis [Other]) Paternal Grandmother Social History Tobacco Use Smoking status: Never Smokeless tobacco: Never Substance Use Topics Alcohol use: Yes Comment: Occasionally 1-2 per year Drug use: No ASSESSMENT/PLAN: 1. Sore throat - ICD9: 462, ICD10: J02.9 - STREP A MOLECULAR (POC) - neg - [id number] NE ([facility]) Prescription instructions reviewed with patient as applicable. Potential red flag symptoms discussed with the patient. Reviewed appropriate action plan to take if red flag symptoms occur. Patient agreeable to treatment plan. Patient will follow up as needed. Shea Chowdary APRN.MICHAEL documented in this encounter [facility] 05-07-2022 Note HNO ID: [id number] Author: DAVON Monroy Service: ? Author Type: Physician Frame Bender Type: Progress Notes Filed: 05/07/2022 4:50 PM Note Text: This note was created using [employer]. Subjective Janny Meza is a 51 year old female. HPI 51-year-old female presents for cough and wheezing. Patient states she has had cough, congestion, runny nose for about 10 days. She states that she is now having some wheezing as well. No history of asthma or lung issues, but she does have seasonal allergies. She has not used inhalers. She has noted she wheezes more at bedtime. No fevers. No vomiting or diarrhea. States cough is dry. PAST MEDICAL HISTORY Diagnosis Date Abnormal glandular Papanicolaou smear of cervix Abn. 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 Convulsions in WITH FEVER Cystocele, midline Depressive disorder, not elsewhere classified 01/14/2006 Multiple sclerosis (HCC) 2012 Other and unspecified hyperlipidemia 03/23/1997 Premenstrual tension syndromes PAST SURGICAL HISTORY Procedure Laterality Date COLPOSCOPY CERVIX UPPER/ADJACENT VAGINA Colposcopy CONIZATION CERVIX W/WO DANDC RPR ELTRD EXC 2004 LEEP-Cervix Paps since OK INSERT INTRAUTERINE DEVICE 11/19/2005 Mirena mid urethral sling 03/20/09 NEPHROLITHOTOMY REMOVAL STAGE 1 1997 TONSILLECTOMY PRIMARY/SECONDARY VAGINAL HYSTERECTOMY UTERUS 250 GM/< 03/20/09 Hysterectomy, vaginal, anterior repair ALLERGIES Cats, Dust, Horse/Equine Containing Products, Morphine, and Seasonal Allergies MEDICATIONS atorvastatin (LIPITOR) 10 mg tablet Take 1 tablet by mouth daily at bedtime. For cholesterol. valACYclovir (VALTREX) 500 mg tablet Take 1 tablet by mouth once daily as needed. Cholecalciferol, Vitamin D3, 1,000 unit cap Take 5 capsules by mouth once daily. doxycycline monohydrate 100 mg tablet Take 1 tablet by mouth twice daily for 5 days. albuterol HFA (PROVENTIL HFA, VENTOLIN HFA) 90 mcg/actuation inhaler Inhale 2 Puffs as instructed every 4 hours as needed for wheezing/shortness of breath. predniSONE (DELTASONE) 20 mg tablet Take 2 tablets by mouth once daily for 4 days. Take daily with food. FLUoxetine HCl (PROZAC) 40 mg capsule Take 40 mg by mouth once daily. (Patient not taking: Reported on 05/07/2022) FAMILY HISTORY Problem Relation Age of Onset Breast Cancer Other PATERNAL GREAT AUNT Heart Father [place] @ AGE 34 other (ANGIOPLASTY [Other]) Paternal Grandfather Heart Paternal Grandmother OPEN HEART SURGERY Diabetes Maternal Grandmother Diabetes Paternal Grandmother Emphysema Maternal Grandfather Cancer Mother LUNG-smoker other (rheumatoid arthritis [Other]) Paternal Grandmother Social History Tobacco Use Smoking status: Never Smokeless tobacco: Never Substance Use Topics Alcohol use: Yes Comment: Occasionally 1-2 per year Drug use: No Review of Systems Constitutional: Negative for chills and fever. HENT: Positive for congestion. Negative for ear pain and sore throat. Respiratory: Positive for cough and wheezing. Negative for shortness of breath. Cardiovascular: Negative for chest pain. Gastrointestinal: Negative for diarrhea and vomiting. Objective BP 104/76 Pulse 70 Temp 36.9 ?C (98.5 ?F) Resp 21 Wt 107.2 kg (236 lb 6.4 oz) LMP 12/20/2005 SpO2 98% BMI 39.34 kg/m? Physical Exam Vitals and nursing note reviewed. Constitutional: General: She is not in acute distress. Appearance: Normal appearance. She is not toxic-appearing. HENT: Right Ear: Tympanic membrane and ear canal normal. Left Ear: Tympanic membrane and ear canal normal. Nose: Congestion present. Mouth/Throat: Mouth: Mucous membranes are moist. Pharynx: No oropharyngeal exudate or posterior oropharyngeal erythema. Eyes: Conjunctiva/sclera: Conjunctivae normal. Cardiovascular: Rate and Rhythm: Normal rate and regular rhythm. Pulmonary: Effort: Pulmonary effort is normal. Breath sounds: No wheezing or rhonchi. Neurological: Mental Status: She is alert. Assessment and Plan ASSESSMENT/PLAN: 1. Sinobronchitis - ICD9: 473.9, 490, ICD10: J32.9, J40 (primary diagnosis) - Will begin treatment with Doxycycline -Rx for prednisone and albuterol inhaler - Supportive care with plenty of fluids, rest, and analgesia prn. 2. Wheezing - ICD9: 786.07, ICD10: R06.2 -Reports wheezing at bedtime. Rx for albuterol inhaler and prednisone. Diagnosis and treatment plan were discussed and questions were answered to the patient's satisfaction. Pt acknowledged understanding of concepts and follow up plan. Specific signs and symptoms that would indicate the need for higher level of care were discussed in detail warranting prompt ER evaluation. DAVON Monroy [facility] 05-07-2022 History of Presen t illness Narrative This note was created using [employer]. Subjective Janny Meza is a 51 year old female. HPI 51-year-old female presents for cough and wheezing. Patient states she has had cough, congestion, runny nose for about 10 days. She states that she is now having some wheezing as well. No history of asthma or lung issues, but she does have seasonal allergies. She has not used inhalers. She has noted she wheezes more at bedtime. No fevers. No vomiting or diarrhea. States cough is dry. PAST MEDICAL HISTORY Diagnosis Date Abnormal glandular Papanicolaou smear of cervix Abn. 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 Convulsions in WITH FEVER Cystocele, midline Depressive disorder, not elsewhere classified 01/14/2006 Multiple sclerosis (HCC) 2012 Other and unspecified hyperlipidemia 03/23/1997 Premenstrual tension syndromes PAST SURGICAL HISTORY Procedure Laterality Date COLPOSCOPY CERVIX UPPER/ADJACENT VAGINA Colposcopy CONIZATION CERVIX W/WO D&C RPR ELTRD EXC 2004 LEEP-Cervix Paps since OK INSERT INTRAUTERINE DEVICE 11/19/2005 Mirena mid urethral sling 03/20/09 NEPHROLITHOTOMY REMOVAL STAGE 1 1997 TONSILLECTOMY PRIMARY/SECONDARY <AGE 12 VAGINAL HYSTERECTOMY UTERUS 250 GM/< 03/20/09 Hysterectomy, vaginal, anterior repair ALLERGIES Cats, Dust, Horse/Equine Containing Products, Morphine, and Seasonal Allergies MEDICATIONS atorvastatin (LIPITOR) 10 mg tablet Take 1 tablet by mouth daily at bedtime. For cholesterol. valACYclovir (VALTREX) 500 mg tablet Take 1 tablet by mouth once daily as needed. Cholecalciferol, Vitamin D3, 1,000 unit cap Take 5 capsules by mouth once daily. doxycycline monohydrate 100 mg tablet Take 1 tablet by mouth twice daily for 5 days. albuterol HFA (PROVENTIL HFA, VENTOLIN HFA) 90 mcg/actuation inhaler Inhale 2 Puffs as instructed every 4 hours as needed for wheezing/shortness of breath. predniSONE (DELTASONE) 20 mg tablet Take 2 tablets by mouth once daily for 4 days. Take daily with food. FLUoxetine HCl (PROZAC) 40 mg capsule Take 40 mg by mouth once daily. (Patient not taking: Reported on 05/07/2022) FAMILY HISTORY Problem Relation Age of Onset Breast Cancer Other PATERNAL GREAT AUNT Heart Father SC @ AGE 34 other (ANGIOPLASTY [Other]) Paternal Grandfather Heart Paternal Grandmother OPEN HEART SURGERY Diabetes Maternal Grandmother Diabetes Paternal Grandmother Emphysema Maternal Grandfather Cancer Mother LUNG-smoker other (rheumatoid arthritis [Other]) Paternal Grandmother Social History Tobacco Use Smoking status: Never Smokeless tobacco: Never Substance Use Topics Alcohol use: Yes Comment: Occasionally 1-2 per year Drug use: No Review of Systems Constitutional: Negative for chills and fever. HENT: Positive for congestion. Negative for ear pain and sore throat. Respiratory: Positive for cough and wheezing. Negative for shortness of breath. Cardiovascular: Negative for chest pain. Gastrointestinal: Negative for diarrhea and vomiting. Objective BP 104/76 Pulse 70 Temp 36.9 C (98.5 F) Resp 21 Wt 107.2 kg (236 lb 6.4 oz) LMP 12/20/2005 SpO2 98% BMI 39.34 kg/m Physical Exam Vitals and nursing note reviewed. Constitutional: General: She is not in acute distress. Appearance: Normal appearance. She is not toxic-appearing. HENT: Right Ear: Tympanic membrane and ear canal normal. Left Ear: Tympanic membrane and ear canal normal. Nose: Congestion present. Mouth/Throat: Mouth: Mucous membranes are moist. Pharynx: No oropharyngeal exudate or posterior oropharyngeal erythema. Eyes: Conjunctiva/sclera: Conjunctivae normal. Cardiovascular: Rate and Rhythm: Normal rate and regular rhythm. Pulmonary: Effort: Pulmonary effort is normal. Breath sounds: No wheezing or rhonchi. Neurological: Mental Status: She is alert. Assessment and Plan ASSESSMENT/PLAN: 1. Sinobronchitis - ICD9: 473.9, 490, ICD10: J32.9, J40 (primary diagnosis) - Will begin treatment with Doxycycline -Rx for prednisone and albuterol inhaler - Supportive care with plenty of fluids, rest, and analgesia prn. 2. Wheezing - ICD9: 786.07, ICD10: R06.2 -Reports wheezing at bedtime. Rx for albuterol inhaler and prednisone. Diagnosis and treatment plan were discussed and questions were answered to the patient's satisfaction. Pt acknowledged understanding of concepts and follow up plan. Specific signs and symptoms that would indicate the need for higher level of care were discussed in detail warranting prompt ER evaluation. DAVON Monroy documented in this encounter [facility] 07-09-2021 Instructions Shea Chowdary APRN.MANAGER UNIT - 07/09/2021 8:30 AM EDT 1.) Get more rest than you usually do - this will speed your recovery. If you push hard with your usual busy schedule, you will be sicker longer. 2.) Drink a lot of water - enough to make you urinate every 2-3 hours (your urine should be a light yellow color). This helps thin the phlegm and sooth the airways. Gatorade (G2) is less in sugar and replaces your electrolytes if not eating well. 3.) Run a cool mist humidifier in your bedroom on high with the door closed. This is a natural way to decongest, and it helps lessen scratchy throats, nasal stuffiness and coughs. 4.) For those without blood pressure concerns, take Sudafed as a decongestant (decreases stuffiness-lets drain), but realize that you will need to take it every 4-6 hours for several days. The lower dose is generally better tolerated (30mg)... Some people can make feel fast heart rate/jittery. You also may try anti-allergy pill like Claritin(loratidine) 10mg or nelly, benadryl (makes sleepy) over the counter as directed to help with drippy nose. Mucinex 600-1200mg twice daily(plain) may help thin secretions so they are easier to cough up. Those with high blood pressure and not with prostate problems can try [id number] Coricidin HBP for congestion. You may find nasal sprays such as Flonase or Nasacort, saline nasal spray and/or Netti Pot may be beneficial 5.) Take ibuprofen or acetominophen every 4-6 hours for pain/aches as needed if not contraindicated for you. Antibiotic as directed per prescription If you should breakout in a rash, stop the medicine and call the office. Any antibiotic has the potential to cause diarrhea due to alteration in the normal bacterial ike of the gut. This can be reduced by eating yogurt with active cultures or taking probiotics daily while on the medication. If diarrhea becomes severe (watery, large volumes or more than 3-4/day) call the office. Women may experience yeast vaginitis due to alteration in the vaginal ike. Symptoms include vaginal itching, irritation, and often a clumpy white discharge. If this occurs, there are several effective over the counter remedies available, including one-dose treatments. If these are unsuccessful, call the office. Antibiotics may interfer with control. If you are on oral contraceptives, use another form of protection (condoms, foams, jellies, diaphragm) throught the end of whatever pill pack you are on in 10 days. If you are not improving in 3-5 days or are worsening follow up with PCP documented in this encounter [facility] 07-09-2021 History of Presen t illness Narrative CC: Patient presents with: Cough: cough, sinus, congestion and fever x 10 days HPI: Janny Meza is a 51 year old female who presents to the office with complaint of respiratory symptoms, head congestion, cough, nonproductive, sinus symptoms and fever for 10 days. Symptoms are worsening Associated symptoms includes nasal congestion and facial pain/pressure. Denies nausea, vomiting and diarrhea. Treatments tried include OTC cold medicine and Guaifenesin/Mucinex with minor relief of symptoms. Sick contacts: unknown. History of asthma, frequent episodes of bronchitis, chronic bronchitis, bronchiectasis or COPD: No Smoker: No Seasonal/environmental allergies: No The ROS is otherwise negative. The patient's pmh, medications, allergies, and past visits are reviewed. PHYSICAL EXAM: BP 112/78 Pulse 73 Temp 36.3 C (97.3 F) (Tympanic) Resp 18 Wt 103.3 kg (227 lb 12.8 oz) LMP 12/20/2005 SpO2 94% BMI 37.91 kg/m General appearance: alert, cooperative, pleasant, in no acute distress Head: Normocephalic Eyes: EOM's intact, conjunctiva pink and moist, no icterus, sclera white, non-injected Ears: Right ear: External ear/canal- Normal, TM - clear with good landmarks. Left ear: External ear/canal- Normal, TM - clear with good landmarks Oropharynx:moist without lesions, No erythema, exudates or tonsillar hypertrophy. Heart: Negative. RRR without obvious murmur, gallop, or rubs. No ectopy. Lungs: clear to auscultation, without rales or wheeze, good air exchange PAST MEDICAL HISTORY Diagnosis Date Abnormal glandular Papanicolaou smear of cervix Abn. Pap smear (cervix) Carcinoma in situ of cervix uteri 2004 Convulsions in WITH FEVER Cystocele, midline Depressive disorder, not elsewhere classified 01/14/2006 Other and unspecified hyperlipidemia 1998 Premenstrual tension syndromes PAST SURGICAL HISTORY Procedure Laterality Date COLPOSCOPY CERVIX UPPER/ADJACENT VAGINA Colposcopy CONIZATION CERVIX W/WO D&C RPR ELTRD EXC 2004 LEEP-Cervix Paps since OK INSERT INTRAUTERINE DEVICE 11/19/2005 Mirena mid urethral sling 03/20/09 NEPHROLITHOTOMY REMOVAL STAGE 1 1998 TONSILLECTOMY PRIMARY/SECONDARY <AGE 12 VAGINAL HYSTERECTOMY UTERUS 250 GM/< 03/20/09 Hysterectomy, vaginal, anterior repair ALLERGIES Cats, Dust, Horse/Equine Containing Products, Morphine, and Seasonal Allergies MEDICATIONS FLUoxetine HCl (PROZAC) 40 mg capsule Take 40 mg by mouth once daily. atorvastatin (LIPITOR) 10 mg tablet Take 1 tablet by mouth daily at bedtime. For cholesterol. valACYclovir (VALTREX) 500 mg tablet Take 1 tablet by mouth once daily as needed. Cholecalciferol, Vitamin D3, 1,000 unit cap Take 5 capsules by mouth once daily. amoxicillin-clavulanic acid (AUGMENTIN) 875-125 mg per tablet Take 1 tablet by mouth twice daily for 5 days. venlafaxine (EFFEXOR) 75 mg tablet Take 2 tablets by mouth twice daily. FAMILY HISTORY Problem Relation Age of Onset Breast Cancer Unknown PATERNAL GREAT AUNT Heart Father [place] @ AGE 34 other (ANGIOPLASTY [Other]) Paternal Grandfather Heart Paternal Grandmother OPEN HEART SURGERY Diabetes Maternal Grandmother Diabetes Paternal Grandmother Emphysema Maternal Grandfather Cancer Mother LUNG-smoker other (rheumatoid arthritis [Other]) Paternal Grandmother Social History Tobacco Use Smoking status: Never Smoker Smokeless tobacco: Never Used Substance Use Topics Alcohol use: Yes Comment: Occasionally 1-2 per year Drug use: No ASSESSMENT/PLAN: 1. Sinus congestion - ICD9: 478.19, ICD10: R09.81 Prescription instructions reviewed with patient as applicable. Augmentin bid for 5 days. Potential red flag symptoms discussed with the patient. Reviewed appropriate action plan to take if red flag symptoms occur. Patient agreeable to treatment plan. Shea Chowdary APRN.MICHAEL documented in this encounter [facility] documented as of this encounter (statuses as of 07/09/2021) [facility] History of Past illness Narrative* Problem Noted Date Resolved Date Female stress incontinence 05/07/200906/11 Female stress incontinence 03/08/200904/05 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) 03/08/2009 06/11/2009 Obesity, unspecified 09/07/2007 04/05/2009 Overview: Marital strain, mother recent , 3 children and pt not working as of 08-28 Willing to consider a plant based protein diet as of 08-28: down 5 pounds as of - TSH 0.48 in 7- Excessive or frequent menstruation 01/14/2006 07/30/2007 Depressive disorder, not elsewhere classified 04/24/2011 Overview: Diagnosed with both Depression and ADD as of 08-28: consider sleep hygiene, marriage, children Dysmenorrhea 01/14/2006 07/30/2007 documented as of this encounter (statuses as of 05/08/2022) [facility]02-15-2010 History of Past illness Narrative* Problem Noted Date Resolved Date Female stress incontinence 05/07/200906/11 Female stress incontinence 03/08/200904/05 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) 03/08/2009 06/11/2009 Obesity, unspecified 09/07/2007 04/05/2009 Overview: Marital strain, mother recent , 3 children and pt not working as of 08-28 Willing to consider a plant based protein diet as of 08-28: down 5 pounds as of 09-27 TSH 0.48 in - Excessive or frequent menstruation 01/14/2006 07/30/2007 Depressive disorder, not elsewhere classified 04/24/2011 Overview: Diagnosed with both Depression and ADD as of 08-28: consider sleep hygiene, marriage, children Dysmenorrhea 01/14/2006 07/30/2007 documented as of this encounter (statuses as of 06/26/2022) [facility] History of Past illness Narrative* Problem Noted Date Diagnosed Date Resolved Date Female stress incontinence 05/07/2009 0 06/11/2009 Female stress incontinence 03/08/2009 0 04/05/2009 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) 03/08/2009 06/12/19 10 Obesity, unspecified 09/07/2007 010 Overview: Marital strain, mother recent , 3 children and pt not working as of 08-28 Willing to consider a plant based protein diet as of 08-28: down 5 pounds as of 09-27 TSH 0.48 in - Excessive or frequent menstruation 01/14/2006 07/30/2007 Depressive disorder, not elsewhere classified 01/15/20 06 04/24/2011 Overview: Diagnosed with both Depression and ADD as of 08-28: consider sleep hygiene, marriage, children Dysmenorrhea 01/14/2006 07/30/2007 documented as of this encounter (statuses as of 12/31/2022) [facility] History of Past illness Narrative* Problem Noted Date Diagnosed Date Resolved Date Female stress incontinence 05/07/2009 0 06/11/2009 Female stress incontinence 03/08/2009 0 04/05/2009 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) 03/08/2009 06/12/19 10 Obesity, unspecified 09/07/2007 010 Overview: Marital strain, mother recent , 3 children and pt not working as of 08-28 Willing to consider a plant based protein diet as of 08-28: down 5 pounds as of 09-27 TSH 0.48 in 09-27 Excessive or frequent menstruation 01/14/2006 07/30/2007 Depressive disorder, not elsewhere classified 01/15/20 06 04/24/2011 Overview: Diagnosed with both Depression and ADD as of 08-28: consider sleep hygiene, marriage, children Dysmenorrhea 01/14/2006 07/30/2007 documented as of this encounter (statuses as of 01/01/2023) [facility] Diagnosis Sinus congestion- Primary Other diseases of nasal cavity and sinuses [facility] Diagnosis Sinobronchitis- Primary Unspecified sinusitis (chronic) Wheezing [facility] Diagnosis Sore throat- Primary Acute pharyngitis [facility] Urinary frequency- Primary Body aches Generalized pain documented in this encounter [facility] Advance Directives No Advanced Directives Records FoundDocuments on File Type Date Recorded 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 Advance Directive(s) 04/19/2009 8:48 PM Summary Purpose Family History No Family History Records FoundNo Family History Records FoundNo Family History Records Found Additional Source Comments Source Comments (unrecognize d section and content) In the event this informatio n is protected by the Federal Confidentiality of Alcohol and Drug Abuse Patient Records regulations: The Federal rules restrict any use of the information to criminally investigate or prosecute any alcohol or drug abuse patient.[facility] event this information is protected by the Federal Confidentiality of Alcohol and Drug Abuse Patient Records regulations: The Federal rules restrict any use of the information to criminally investigate or prosecute any alcohol or drug abuse patient.[facility] the event this information is protected by the Federal Confidentiality of Alcohol and Drug Abuse Patient Records regulations: The Federal rules restrict any use of the information to criminally investigate or prosecute any alcohol or drug abuse patient.[facility] the event this information is protected by the Federal Confidentiality of Alcohol and Drug Abuse Patient Records regulations: The Federal rules restrict any use of the information to criminally investigate or prosecute any alcohol or drug abuse patient.[facility] the event this information is protected by the Federal Confidentiality of Alcohol and Drug Abuse Patient Records regulations: The Federal rules restrict any use of the information to criminally investigate or prosecute any alcohol or drug abuse patient.[facility] Reason for Visit (unrecogniz ed section and content) Reason Comments Cough Barking cough, wheez ing x 10 days Reason Comments Sore Throat ST and fever x 2 day s Reason Comments Urinary Frequency Frequency, bodyaches and lower back pain x 2 days Reason Comments Results Care Teams (unrecognized sec tion and content) 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 Start Date End Date Paulino Peters MD [address] [place] [address] (Fax) PCP - General Internal Medicine 05/07/22 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 Specialty Start Date End Date Paulino Peters MD [address] [place] [address] (Fax) PCP - General Internal Medicine 05/07/22 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 Specialty Start Date End Date Paulino Peters MD [address] [place] [address] (Fax) PCP - General Internal Medicine 05/07/22 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 DATE CREATED AUTHOR AUTHOR'S ORGANORI ATION 01/01/2023 [facility] FOR RECORDS PERTAINING TO PATIENTS WHO ARE OR HAVE BEEN ENROLLED IN A CHEMICAL DEPENDENCY/SUBSTANCEABUSE PROGRAM, SOME INFORMATION MAY BE OMITTED. This clinical summary was aggregated from multiple sources. Caution should be exercised in using it in the provision of clinical care. This summary normalizes information from multiple sources, and as a consequence, information in this document may materially change the coding, format and clinical context of patient data. In addition, data may be omitted in some cases. CLINICAL DECISIONS SHOULD BE BASED ON THE PRIMARY CLINICAL RECORDS. [facility] [employer] provides no warranty or guarantee of the accuracy or completeness of information in this document.
[2023-03-19 10:06] LABS: Absolute Lymphocyte Count 2.73 X10^3/uL (0.83-4.51); Absolute Neutrophil Count 5.3 X10^3/uL (2.0-7.7); Basophil# 0.09 X10^3/uL; Basophil% 0.9 % (0-1); Eosinophil# 0.74 X10^3/uL; Eosinophils% 7.6 % (0-5); Hematocrit 47.1 % (37-47); Hemoglobin 14.6 g/dL (12.0-15.0); Lymphocyte # 2.73 X10^3/ul (0.83-4.51); Lymphocyte % 28.1 % (19-41); Mean Corpuscular Hgb 27.4 pg (27.0-32.0); Mean Corpuscular Volume 88.4 fL (81-99); Mean Platelet Vol. 11.7 fl (6.2-12.0); Monocyte# 0.84 X10^3/uL; Monocyte% 8.7 % (0-10); NRBC Flagged by Analyzer 0 % (0-5); Neutrophil # 5.26 X10^3/uL (2.7-7.7); Neutrophil % 54.3 % (47-70); Platelet Count 263 K/mm3 (150-450); RBC Distribution Width CV 13.5 % (11.6-14.6); RBC Distribution Width SD 43.4 fl (35.1-43.9); Red Blood Count 5.33 M/mm3 (4.2-5.4); White Blood Count 9.7 K/mm3 (4.4-11.0)
[2023-03-19 10:29] LABS: Hemoglobin A1c 5.6 % (3.8-5.6)
[2023-03-19 10:46] LABS: ALB/GLOB Ratio 0.8 RATIO (0.9-2.4); AST(SGOT) 14 U/L (15-37); Alanine Aminotransfer ALT/SGPT 19 U/L (13-56); Albumin, Serum 3.1 g/dL (3.2-5.0); Alkaline Phosphatase 70 U/L (45-117); Anion Gap 4 (5-15); BUN 11 mg/dL (7-18); BUN/Creat Ratio 10.9 RATIO (10-20); Calcium,Total 8.8 mg/dL (8.5-10.1); Chloride 107 mmol/L (98-107); Cholesterol 151 mg/dL (200); Creatinine, Serum 1.01 mg/dL (0.55-1.02); EST Glomerular Filtration Rate 61 mL/min (>60); Est Glom Filt Rate - Afr Amer 74 mL/min (>60); Globulin 3.7 g/dL (2.2-4.2); Glucose 107 mg/dL (74-106); High Density Lipoprotein 58 mg/dL; Potassium 4.3 mmol/L (3.5-5.1); Protein, Total 6.8 g/dL (6.4-8.2); Sodium Level 141 mmol/L (136-145); Triglycerides 78 mg/dL; Very Low Density Lipoprotein 16 mg/dL (5-40)
== END | disposition home or self-care (01) ==
LOC: LAB 09:26
PROVIDERS: PCP Family Medicine; Referring Provider Family Medicine; Visit Provider Family Medicine
DX: Z13.1 Encounter for screening for diabetes mellitus (principal); E66.9 Obesity, unspecified; E78.5 Hyperlipidemia, unspecified; R06.02 Shortness of breath
CPT/HCPCS: 36415; 80053; 80061; 83036; 84443; 85025

== ENCOUNTER → 2023-10-21 | Outpatient (CLI) | payer MEDICAID, SELFPAY ==
[2023-10-21 18:03] LABS: Vitamin B12 462 pg/mL (211-911); Vitamin D,25 Hydroxy 36.1 ng/mL
== END | disposition home or self-care (01) ==
LOC: MTLAB 16:50
PROVIDERS: PCP Family Medicine; Referring Provider Family Medicine; Visit Provider Family Medicine
DX: E55.9 Vitamin D deficiency, unspecified (principal)
CPT/HCPCS: 36415; 82306; 82607